=== PATIENT | female | born 1975 | race Hispanic/Latino ===

== ENCOUNTER 2024-01-19 22:34 | Inpatient (IN) | payer SELFPAY ==
[~2024-01-19] VITALS: Ht 157.5 cm; Wt 77.1 kg
[2024-01-19 22:58] LABS: BASOPHILS # (AUTO) 0.01 K/uL (0.00-0.20); BASOPHILS % (AUTO) 0.2 % (0.0-5.0); EOSINOPHILS # (AUTO) 0.18 K/uL (0.00-0.70); EOSINOPHILS % (AUTO) 3.4 % (0.0-8.0); HEMATOCRIT 34.9 % (36-48); IMMATURE GRANULOCYTE ABSOLUTE 0.01 K/uL (0-1); LYMPHOCYTES # (AUTO) 3.1 K/uL (1.0-4.8); LYMPHOCYTES % (AUTO) 57.9 % (21.0-51.0); MEAN CORPUSCULAR HEMOGLOBIN 28.9 pg (27.0-33.0); MEAN CORPUSCULAR HGB CONC 33.2 g/dL (32.0-36.0); MONOCYTES # (AUTO) 0.6 K/uL (0.1-1.0); MONOCYTES % (AUTO) 11.7 % (3.0-13.0); NEUTROPHILS # (AUTO) 1.4 K/uL (1.8-7.7); NEUTROPHILS % (AUTO) 26.6 % (40.0-77.0); PLATELET COUNT (AUTO) 178 K/uL (130-400); RED BLOOD CELL COUNT(AUTO) 4.01 MIL/uL (4.00-5.50); RED CELL DISTRIBUTION WIDTH 13.7 % (11.0-15.5); WHITE BLOOD COUNT (AUTO) 5.3 K/uL (4.8-10.8)
[2024-01-19 23:07] LABS: CREATININE 0.5 mg/dL (0.5-1.0); POTASSIUM 3.6 mmol/L (3.5-5.1)
[2024-01-19] MEDS: 0.9%NACL 1000ML 1,000 ML IV ONE (23:09)
[2024-01-19 23:13] LABS: ALBUMIN 3.1 g/dL (3.5-5.0); BILIRUBIN,TOTAL 0.3 mg/dL (0.2-1.0); TOTAL PROTEIN, SERUM 6.6 g/dL (6.0-8.3)
[2024-01-20] MEDS: ORPHENADRINE 60MG/2ML IM ONE (01:36)
[2024-01-20] MEDS: ketOROlac 30MG VIAL (30MG/ML) IM ONE (01:36)
[2024-01-20] MEDS: morPHINE 2 MG SYG IVP ONE (03:04)
[2024-01-20] MEDS: 0.9%NACL 1000ML 1,000 ML IV ONE (03:37)
[2024-01-20] MEDS ORDERED: acetaMINOPHEN 325 MG TAB PO PRN ×2 (06:30)
[2024-01-20] MEDS ORDERED: ondanSETRON 4MG INJ IV PRN (06:30)
[2024-01-20 07:35] VITALS: BP 150/75; PULSE 78; RESP 18; TEMP 98.1
[2024-01-20 07:49] LABS: BASOPHILS # (AUTO) 0.01 K/uL (0.00-0.20); BASOPHILS % (AUTO) 0.1 % (0.0-5.0); EOSINOPHILS # (AUTO) 0.16 K/uL (0.00-0.70); EOSINOPHILS % (AUTO) 2.2 % (0.0-8.0); HEMATOCRIT 33.2 % (36-48); IMMATURE GRANULOCYTE ABSOLUTE 0.01 K/uL (0-1); LYMPHOCYTES # (AUTO) 3.1 K/uL (1.0-4.8); LYMPHOCYTES % (AUTO) 42.6 % (21.0-51.0); MEAN CORPUSCULAR HGB CONC 32.2 g/dL (32.0-36.0); MONOCYTES # (AUTO) 0.7 K/uL (0.1-1.0); NEUTROPHILS # (AUTO) 3.2 K/uL (1.8-7.7); PLATELET COUNT (AUTO) 154 K/uL (130-400); RED BLOOD CELL COUNT(AUTO) 3.69 MIL/uL (4.00-5.50); WHITE BLOOD COUNT (AUTO) 7.2 K/uL (4.8-10.8)
[2024-01-20 08:19] LABS: ALBUMIN 2.9 g/dL (3.5-5.0); BILIRUBIN,TOTAL 0.6 mg/dL (0.2-1.0); CREATININE 0.5 mg/dL (0.5-1.0); MAGNESIUM 1.6 mg/dL (1.80-2.40)
[2024-01-20 09:00] LABS: ERYTHROCYTE SEDIMENTATION RATE 6 MM/HR (0-20)
[2024-01-20] MEDS: FAMOTIDINE 20MG TAB PO SCH (09:49)
[2024-01-20 10:04] LABS: APPEARANCE,URINE CLOUDY (CLEAR); BILIRUBIN,URINE NEGATIVE (NEGATIVE); COLOR,URINE YELLOW (YELLOW); GLUCOSE, URINE (UA) NEGATIVE (NEGATIVE); KETONES,URINE NEGATIVE (NEGATIVE); LEUKOCYTE ESTERASE ,URINE 75 Leu/uL (NEGATIVE); NITRATE,URINE NEGATIVE (NEGATIVE); OCCULT BLOOD,URINE SMALL (NEGATIVE); PH,URINE 5.5 (5.0-8.0); PROTEIN,URINE 30 mg/dL (NEGATIVE); UROBILINOGEN,URINE 0.2 mg/dL (0.2-1.0)
[2024-01-20 10:46] LABS: BACTERIA,URINE Many /HPF (None Seen)
[2024-01-20 12:00] VITALS: BP 149/80; PULSE 78; RESP 18; TEMP 98.3
[2024-01-20] MEDS: MAGNESIUM 2GM PREMIX 50ML 50 ML IV PRN (18:24)
[2024-01-20 20:00] VITALS: BP 159/92; PULSE 84; RESP 20; TEMP 98; O2SAT 99
[2024-01-21] VITALS (8 sets, daily range): BP systolic 143–160; BP diastolic 64–86; PULSE 79–92; RESP 16–20; TEMP 97.5–98.3; O2SAT 96–98
[2024-01-21] MEDS: ketOROlac 15MG/ML VIAL (15MG/ML) IV PRN (07:43)
[2024-01-21 09:23] LABS: BASOPHILS # (AUTO) 0.01 K/uL (0.00-0.20); BASOPHILS % (AUTO) 0.2 % (0.0-5.0); EOSINOPHILS # (AUTO) 0.08 K/uL (0.00-0.70); EOSINOPHILS % (AUTO) 1.6 % (0.0-8.0); HEMATOCRIT 32.4 % (36-48); IMMATURE GRANULOCYTE ABSOLUTE 0.02 K/uL (0-1); LYMPHOCYTES # (AUTO) 1.8 K/uL (1.0-4.8); LYMPHOCYTES % (AUTO) 37.4 % (21.0-51.0); MEAN CORPUSCULAR HEMOGLOBIN 28.8 pg (27.0-33.0); MEAN CORPUSCULAR VOLUME 87.1 fL (79-99); MONOCYTES # (AUTO) 0.4 K/uL (0.1-1.0); MONOCYTES % (AUTO) 8.7 % (3.0-13.0); NEUTROPHILS # (AUTO) 2.5 K/uL (1.8-7.7); NEUTROPHILS % (AUTO) 51.7 % (40.0-77.0); PLATELET COUNT (AUTO) 159 K/uL (130-400); RED BLOOD CELL COUNT(AUTO) 3.72 MIL/uL (4.00-5.50); RED CELL DISTRIBUTION WIDTH 13.6 % (11.0-15.5); WHITE BLOOD COUNT (AUTO) 4.9 K/uL (4.8-10.8)
[2024-01-21 09:38] LABS: ALBUMIN 2.8 g/dL (3.5-5.0); BILIRUBIN,TOTAL 0.7 mg/dL (0.2-1.0); CREATININE 0.5 mg/dL (0.5-1.0); POTASSIUM 4.3 mmol/L (3.5-5.1)
[2024-01-21] MEDS: ZOSYN 3.375GM +NS 50ML IV SCH (13:41)
[2024-01-21 14:04] LABS: THYROID STIMULATING HORMONE < 0.01 uIU/mL (0.36-3.74)
[2024-01-22] VITALS (8 sets, daily range): BP systolic 122–164; BP diastolic 55–93; PULSE 56–110; RESP 18–20; TEMP 98–99; O2SAT 96–100
[2024-01-22 04:50] LABS: BASOPHILS # (AUTO) 0.01 K/uL (0.00-0.20); BASOPHILS % (AUTO) 0.2 % (0.0-5.0); EOSINOPHILS # (AUTO) 0.19 K/uL (0.00-0.70); EOSINOPHILS % (AUTO) 3.6 % (0.0-8.0); HEMATOCRIT 32.7 % (36-48); IMMATURE GRANULOCYTE ABSOLUTE 0.01 K/uL (0-1); LYMPHOCYTES # (AUTO) 2.7 K/uL (1.0-4.8); LYMPHOCYTES % (AUTO) 51.8 % (21.0-51.0); MEAN CORPUSCULAR HEMOGLOBIN 28.8 pg (27.0-33.0); MEAN CORPUSCULAR HGB CONC 32.1 g/dL (32.0-36.0); MEAN CORPUSCULAR VOLUME 89.6 fL (79-99); MONOCYTES # (AUTO) 0.6 K/uL (0.1-1.0); MONOCYTES % (AUTO) 11.2 % (3.0-13.0); NEUTROPHILS # (AUTO) 1.7 K/uL (1.8-7.7); PLATELET COUNT (AUTO) 148 K/uL (130-400); RED BLOOD CELL COUNT(AUTO) 3.65 MIL/uL (4.00-5.50); RED CELL DISTRIBUTION WIDTH 13.6 % (11.0-15.5); WHITE BLOOD COUNT (AUTO) 5.3 K/uL (4.8-10.8)
[2024-01-22 05:03] LABS: ALBUMIN 2.7 g/dL (3.5-5.0); BILIRUBIN,TOTAL 0.9 mg/dL (0.2-1.0); CREATININE 0.5 mg/dL (0.5-1.0); POTASSIUM 4.1 mmol/L (3.5-5.1); TOTAL PROTEIN, SERUM 5.8 g/dL (6.0-8.3)
[2024-01-22] MEDS: LISINOPRIL 20 MG TABLET PO SCH (09:41)
[2024-01-22] MEDS: methIMAZOLE 10 MG TAB PO SCH ×2 (14:25→21:30)
[2024-01-23] VITALS (7 sets, daily range): BP systolic 116–149; BP diastolic 50–82; PULSE 60–101; RESP 19–20; TEMP 97.6–99.2; O2SAT 97–100
[2024-01-23 05:54] LABS: CREATININE 0.4 mg/dL (0.5-1.0); POTASSIUM 3.6 mmol/L (3.5-5.1)
[2024-01-23 05:58] LABS: ALBUMIN 2.8 g/dL (3.5-5.0); BILIRUBIN,TOTAL 0.8 mg/dL (0.2-1.0); TOTAL PROTEIN, SERUM 5.9 g/dL (6.0-8.3)
[2024-01-23 06:04] LABS: BASOPHILS # (AUTO) 0.01 K/uL (0.00-0.20); BASOPHILS % (AUTO) 0.2 % (0.0-5.0); EOSINOPHILS # (AUTO) 0.17 K/uL (0.00-0.70); EOSINOPHILS % (AUTO) 2.7 % (0.0-8.0); IMMATURE GRANULOCYTE ABSOLUTE 0.02 K/uL (0-1); LYMPHOCYTES % (AUTO) 32.4 % (21.0-51.0); MEAN CORPUSCULAR HEMOGLOBIN 28.9 pg (27.0-33.0); MEAN CORPUSCULAR HGB CONC 32.9 g/dL (32.0-36.0); MEAN CORPUSCULAR VOLUME 87.8 fL (79-99); MONOCYTES # (AUTO) 0.8 K/uL (0.1-1.0); MONOCYTES % (AUTO) 12.6 % (3.0-13.0); NEUTROPHILS # (AUTO) 3.3 K/uL (1.8-7.7); NEUTROPHILS % (AUTO) 51.8 % (40.0-77.0); PLATELET COUNT (AUTO) 147 K/uL (130-400); RED BLOOD CELL COUNT(AUTO) 3.53 MIL/uL (4.00-5.50); RED CELL DISTRIBUTION WIDTH 13.5 % (11.0-15.5); WHITE BLOOD COUNT (AUTO) 6.3 K/uL (4.8-10.8)
[2024-01-23] MEDS: LISINOPRIL 40 MG TABLET PO SCH (08:54)
[2024-01-23] MEDS: dexaMETHasone 4 MG TAB PO SCH (08:55)
[2024-01-24 04:00] VITALS: BP 163/83; PULSE 74; RESP 19; TEMP 97.6
[2024-01-24 05:14] LABS: BASOPHILS # (AUTO) 0.01 K/uL (0.00-0.20); BASOPHILS % (AUTO) 0.2 % (0.0-5.0); HEMATOCRIT 29.8 % (36-48); IMMATURE GRANULOCYTE ABSOLUTE 0.03 K/uL (0-1); LYMPHOCYTES # (AUTO) 1.1 K/uL (1.0-4.8); LYMPHOCYTES % (AUTO) 17.6 % (21.0-51.0); MEAN CORPUSCULAR HEMOGLOBIN 28.8 pg (27.0-33.0); MEAN CORPUSCULAR HGB CONC 33.2 g/dL (32.0-36.0); MEAN CORPUSCULAR VOLUME 86.6 fL (79-99); MONOCYTES # (AUTO) 0.6 K/uL (0.1-1.0); MONOCYTES % (AUTO) 9.2 % (3.0-13.0); NEUTROPHILS # (AUTO) 4.5 K/uL (1.8-7.7); NEUTROPHILS % (AUTO) 72.5 % (40.0-77.0); PLATELET COUNT (AUTO) 163 K/uL (130-400); RED BLOOD CELL COUNT(AUTO) 3.44 MIL/uL (4.00-5.50); RED CELL DISTRIBUTION WIDTH 13.4 % (11.0-15.5); WHITE BLOOD COUNT (AUTO) 6.2 K/uL (4.8-10.8)
[2024-01-24 05:39] LABS: ALBUMIN 2.8 g/dL (3.5-5.0); BILIRUBIN,TOTAL 0.5 mg/dL (0.2-1.0); CREATININE 0.4 mg/dL (0.5-1.0); POTASSIUM 3.8 mmol/L (3.5-5.1); TOTAL PROTEIN, SERUM 6.1 g/dL (6.0-8.3)
[2024-01-24 08:00] VITALS: BP 137/77; PULSE 80; RESP 18; TEMP 97.6
[2024-01-24 08:05] VITALS: O2SAT 97
[2024-01-24] MEDS: DiphenhydrAMINE HCL 50 MG/ML VIAL IV ONE (10:21)
[2024-01-24] MEDS: 0.9%NACL 1000ML 1,000 ML IV ONE (10:21)
[2024-01-24 12:00] VITALS: BP 171/85; PULSE 75; RESP 18; TEMP 98.2
[2024-01-24 16:00] VITALS: BP 156/90; PULSE 83; RESP 18; TEMP 97.7
[2024-01-24 20:00] VITALS: BP 171/82; PULSE 76; RESP 19; TEMP 98.1; O2SAT 97
[2024-01-24] MEDS: NITROFURANTOIN MONOHYD/M-CRYST 100 MG CAPSULE PO SCH (20:41)
[2024-01-24] MEDS: DiphenhydrAMINE HCL 50 MG/ML VIAL IV PRN (20:42)
[2024-01-25] VITALS (7 sets, daily range): BP systolic 131–171; BP diastolic 66–92; PULSE 58–75; RESP 18; TEMP 97.6–98.7; O2SAT 94–96
[2024-01-25 06:09] LABS: BASOPHILS # (AUTO) 0.02 K/uL (0.00-0.20); BASOPHILS % (AUTO) 0.2 % (0.0-5.0); EOSINOPHILS # (AUTO) 0.33 K/uL (0.00-0.70); EOSINOPHILS % (AUTO) 2.9 % (0.0-8.0); IMMATURE GRANULOCYTE ABSOLUTE 0.05 K/uL (0-1); LYMPHOCYTES # (AUTO) 2.2 K/uL (1.0-4.8); LYMPHOCYTES % (AUTO) 19.3 % (21.0-51.0); MEAN CORPUSCULAR HEMOGLOBIN 28.4 pg (27.0-33.0); MEAN CORPUSCULAR HGB CONC 31.9 g/dL (32.0-36.0); MEAN CORPUSCULAR VOLUME 89.1 fL (79-99); MONOCYTES # (AUTO) 0.8 K/uL (0.1-1.0); MONOCYTES % (AUTO) 7.1 % (3.0-13.0); NEUTROPHILS # (AUTO) 7.9 K/uL (1.8-7.7); NEUTROPHILS % (AUTO) 70.1 % (40.0-77.0); PLATELET COUNT (AUTO) 178 K/uL (130-400); RED BLOOD CELL COUNT(AUTO) 3.59 MIL/uL (4.00-5.50); RED CELL DISTRIBUTION WIDTH 13.6 % (11.0-15.5); WHITE BLOOD COUNT (AUTO) 11.2 K/uL (4.8-10.8)
[2024-01-25 06:41] LABS: ALBUMIN 2.9 g/dL (3.5-5.0); BILIRUBIN,TOTAL 0.5 mg/dL (0.2-1.0); CREATININE 0.5 mg/dL (0.5-1.0); POTASSIUM 3.4 mmol/L (3.5-5.1); TOTAL PROTEIN, SERUM 6.2 g/dL (6.0-8.3)
[2024-01-25] MEDS: PROPRANOLOL HCL 10 MG TAB PO SCH ×2 (14:29→21:00)
[2024-01-25] MEDS: DiphenhydrAMINE 2% CREAM 30 GM TP PRN (22:36)
[2024-01-26] VITALS (9 sets, daily range): BP systolic 120–144; BP diastolic 64–88; PULSE 54–74; RESP 18–19; TEMP 97.5–98.5; O2SAT 98–100
[2024-01-26 04:59] LABS: BASOPHILS # (AUTO) 0.03 K/uL (0.00-0.20); BASOPHILS % (AUTO) 0.3 % (0.0-5.0); EOSINOPHILS # (AUTO) 0.58 K/uL (0.00-0.70); EOSINOPHILS % (AUTO) 5.1 % (0.0-8.0); HEMATOCRIT 30.8 % (36-48); IMMATURE GRANULOCYTE ABSOLUTE 0.05 K/uL (0-1); LYMPHOCYTES # (AUTO) 2.7 K/uL (1.0-4.8); LYMPHOCYTES % (AUTO) 23.6 % (21.0-51.0); MEAN CORPUSCULAR HEMOGLOBIN 29.1 pg (27.0-33.0); MEAN CORPUSCULAR HGB CONC 32.8 g/dL (32.0-36.0); MEAN CORPUSCULAR VOLUME 88.8 fL (79-99); MONOCYTES % (AUTO) 8.6 % (3.0-13.0); PLATELET COUNT (AUTO) 162 K/uL (130-400); RED BLOOD CELL COUNT(AUTO) 3.47 MIL/uL (4.00-5.50); RED CELL DISTRIBUTION WIDTH 13.6 % (11.0-15.5); WHITE BLOOD COUNT (AUTO) 11.3 K/uL (4.8-10.8)
[2024-01-26 05:19] LABS: ALBUMIN 2.8 g/dL (3.5-5.0); BILIRUBIN,TOTAL 0.6 mg/dL (0.2-1.0); CREATININE 0.4 mg/dL (0.5-1.0); POTASSIUM 3.4 mmol/L (3.5-5.1); TOTAL PROTEIN, SERUM 5.8 g/dL (6.0-8.3)
[2024-01-26] MEDS ORDERED: PoTASSium chloRIDE 20MEQ/100ML 100 ML IV PRN (05:30)
[2024-01-26] MEDS ORDERED: PoTASSium chl 10% ELIXIR 20MEQ 20 MEQ/15 ML UDCUP PO PRN (05:30)
[2024-01-26] MEDS: PoTASSium chloRIDE 20MEQ ER 20 MEQ ERTAB PO PRN (05:39)
[2024-01-26] MEDS: FAMOTIDINE 20MG TAB PO SCH (20:44)
[2024-01-26] MEDS: BETAMETHASONE VALERATE 45 GM CREAM.GM. TP SCH (20:45)
[2024-01-27 04:00] VITALS: BP 144/81; PULSE 59; RESP 19; TEMP 97.9
[2024-01-27 04:44] LABS: BASOPHILS # (AUTO) 0.02 K/uL (0.00-0.20); BASOPHILS % (AUTO) 0.2 % (0.0-5.0); EOSINOPHILS # (AUTO) 0.91 K/uL (0.00-0.70); EOSINOPHILS % (AUTO) 8.2 % (0.0-8.0); HEMATOCRIT 28.7 % (36-48); IMMATURE GRANULOCYTE ABSOLUTE 0.02 K/uL (0-1); LYMPHOCYTES # (AUTO) 4.2 K/uL (1.0-4.8); LYMPHOCYTES % (AUTO) 37.8 % (21.0-51.0); MEAN CORPUSCULAR HGB CONC 33.4 g/dL (32.0-36.0); MEAN CORPUSCULAR VOLUME 86.7 fL (79-99); MONOCYTES # (AUTO) 1.1 K/uL (0.1-1.0); MONOCYTES % (AUTO) 10.2 % (3.0-13.0); NEUTROPHILS # (AUTO) 4.8 K/uL (1.8-7.7); NEUTROPHILS % (AUTO) 43.4 % (40.0-77.0); PLATELET COUNT (AUTO) 159 K/uL (130-400); RED BLOOD CELL COUNT(AUTO) 3.31 MIL/uL (4.00-5.50); RED CELL DISTRIBUTION WIDTH 13.5 % (11.0-15.5); WHITE BLOOD COUNT (AUTO) 11.1 K/uL (4.8-10.8)
[2024-01-27 05:38] LABS: ALBUMIN 2.6 g/dL (3.5-5.0); BILIRUBIN,TOTAL 0.7 mg/dL (0.2-1.0); CREATININE 0.4 mg/dL (0.5-1.0); POTASSIUM 3.4 mmol/L (3.5-5.1); TOTAL PROTEIN, SERUM 5.6 g/dL (6.0-8.3)
[2024-01-27 08:00] VITALS: BP 142/77; PULSE 64; RESP 17; TEMP 97.8; O2SAT 100
[2024-01-27 12:00] VITALS: BP 137/67; PULSE 66; RESP 18; TEMP 98.6
[2024-01-27 16:00] VITALS: BP 131/70; PULSE 71; RESP 19; TEMP 99.6
[2024-01-27] MEDS: Solu-medROL 125MG VIAL IVP ONE (17:08)
[2024-01-27 20:00] VITALS: BP 146/75; PULSE 68; RESP 16; TEMP 99.4; O2SAT 98
[2024-01-28] VITALS: BP 143/81; PULSE 62; RESP 16; TEMP 97.7
[2024-01-28 04:00] VITALS: BP 126/70; PULSE 63; RESP 16; TEMP 97.6
[2024-01-28] MEDS: Solu-medROL 125MG VIAL ONE (07:54)
[2024-01-28 08:00] VITALS: BP 150/75; PULSE 60; RESP 18; TEMP 98
[2024-01-28] MEDS: predniSONE 20 MG TABLET PO SCH (09:02)
[2024-01-28 11:54] VITALS: BP 124/60; PULSE 69; RESP 18; TEMP 97.8
[2024-01-28] MEDS ORDERED: LISI40TA9 PO (13:13)
[2024-01-28] MEDS ORDERED: BETA15CR6 TP (13:13)
[2024-01-28] MEDS ORDERED: PROP10TA72 PO (13:13)
[2024-01-28] MEDS ORDERED: PRED10TA3 PO (13:18)
[2024-01-28] MEDS ORDERED: CEPH500T PO (13:19)
[2024-01-30] MEDS ORDERED: predniSONE 10 MG TABLET PO SCH (09:00)
[2024-02-02] MEDS ORDERED: predniSONE 5 MG TABLET PO SCH (09:00)
== END 2024-01-28 15:30 | disposition home or self-care (01) | DRG 552 ==
LOC: EDH 22:34 → EDHIP 22:35 → OBSVTOIN 22:35 → 3DH 01-20 07:35
PROVIDERS: ADMIT Internal Medicine; ATTEND Internal Medicine
DX: M43.17 Spondylolisthesis, lumbosacral region (principal); N39.0 Urinary tract infection, site not specified; D64.9 Anemia, unspecified; E04.1 Nontoxic single thyroid nodule; Z88.8 Allergy status to other drugs, medicaments and biological substances; B96.20 Unspecified Escherichia coli [E. coli] as the cause of diseases classified elsewhere; F17.210 Nicotine dependence, cigarettes, uncomplicated; L29.9 Pruritus, unspecified; M48.07 Spinal stenosis, lumbosacral region; G89.29 Other chronic pain; E03.9 Hypothyroidism, unspecified; I10 Essential (primary) hypertension
CPT/HCPCS: 36415; 72100; 72114; 72148; 76536; 80053; 81001; 82306; 82550; 82607; 83735; 84439; 84443; 84480; 85025; 85651; 86038; 86215; 86235; 87086; 87186; 96361; G0378; J1200; J1885; J2270; J2543; J2919; J3475; J8540; J2360

== ENCOUNTER 2024-04-09 10:55 | Inpatient (IN) | payer BC, MEDICAID ==
[~2024-04-09] VITALS: Ht 157.5 cm; Wt 75.5 kg
[~2024-04-09 10:55] MED LIST: APIX5TAB PO; LEVO250T75 PO; LISI40TA9 PO; METH-387 PO; [UNRECOGNIZED DRUG - CODE] PO
[2024-04-09] MEDS: 0.9%NACL 1000ML 1,000 ML IV ONE (11:14)
[2024-04-09] MEDS: acetaMINOPHEN 500 MG TABLET PO ONE (11:15)
[2024-04-09 11:22] LABS: BASOPHILS # (AUTO) 0.02 K/uL (0.00-0.20); BASOPHILS % (AUTO) 0.2 % (0.0-5.0); EOSINOPHILS # (AUTO) 0.04 K/uL (0.00-0.70); EOSINOPHILS % (AUTO) 0.3 % (0.0-8.0); HEMATOCRIT 38.6 % (36-48); IMMATURE GRANULOCYTE ABSOLUTE 0.04 K/uL (0-1); LYMPHOCYTES # (AUTO) 3.8 K/uL (1.0-4.8); LYMPHOCYTES % (AUTO) 30.2 % (21.0-51.0); MEAN CORPUSCULAR HEMOGLOBIN 28.5 pg (27.0-33.0); MEAN CORPUSCULAR HGB CONC 33.4 g/dL (32.0-36.0); MEAN CORPUSCULAR VOLUME 85.4 fL (79-99); MONOCYTES # (AUTO) 1.7 K/uL (0.1-1.0); MONOCYTES % (AUTO) 13.4 % (3.0-13.0); NEUTROPHILS % (AUTO) 55.6 % (40.0-77.0); PLATELET COUNT (AUTO) 211 K/uL (130-400); RED BLOOD CELL COUNT(AUTO) 4.52 MIL/uL (4.00-5.50); RED CELL DISTRIBUTION WIDTH 13.8 % (11.0-15.5); WHITE BLOOD COUNT (AUTO) 12.6 K/uL (4.8-10.8)
[2024-04-09 11:24] LABS: APPEARANCE,URINE CLOUDY (CLEAR); BILIRUBIN,URINE NEGATIVE (NEGATIVE); COLOR,URINE YELLOW (YELLOW); GLUCOSE, URINE (UA) NEGATIVE (NEGATIVE); KETONES,URINE NEGATIVE (NEGATIVE); LEUKOCYTE ESTERASE ,URINE 75 Leu/uL (NEGATIVE); NITRATE,URINE NEGATIVE (NEGATIVE); OCCULT BLOOD,URINE NEGATIVE (NEGATIVE); PH,URINE 6.5 (5.0-8.0); PROTEIN,URINE NEGATIVE (NEGATIVE); UROBILINOGEN,URINE 0.2 mg/dL (0.2-1.0)
[2024-04-09 11:28] LABS: CREATININE 0.5 mg/dL (0.5-1.0); POTASSIUM 3.7 mmol/L (3.5-5.1)
[2024-04-09 11:29] LABS: ADD UA MICROSCOPIC YES
[2024-04-09 11:34] LABS: BACTERIA,URINE MOD /HPF (None Seen); MUCUS,URINE RARE LPF (None Seen); SQUAMOUS EPITHELIAL CELL,UR RARE /HPF (0-2)
[2024-04-09] MEDS: ondanSETRON 4MG INJ IVP ONE (11:42)
[2024-04-09] MEDS: ketOROlac 15MG/ML VIAL (15MG/ML) IV ONE (11:43)
[2024-04-09] MEDS: morPHINE 2 MG SYG IVP ONE (11:43)
[2024-04-09] MEDS: AZTREONAM 1 GM VIAL IVPB SCH (12:23)
--- NOTE | 2024-04-09 13:15 | HMCIMG ---
CT ABDOMEN/PELVIS W/O CONTRAST REASON: flank pain hx of kidney stones COMPARISON: None. FINDINGS: Lung bases are clear. There are no focal liver lesions. There are normal-appearing kidneys.. There is no evidence of mass, stone or hydronephrosis. Spleen and pancreas appear unremarkable. There has been a previous cholecystectomy. Bowel loops appear unremarkable. There is no CT evidence of acute appendicitis. There is no evidence of free fluid or intraperitoneal air. There are no focal fluid collections. Aorta and retroperitoneum appear normal as do pelvic soft tissue structures. The anterior abdominal wall is intact. Osseous structures appear unremarkable. IMPRESSION: 1. Normal noncontrast CT of the abdomen and pelvis. CT was performed with one or more following dose reduction techniques: automated exposure control, adjustment of the mA and kv according to patient's size, or use of a iterative reconstruction technique.
[2024-04-09] MEDS ORDERED: ketOROlac 30MG VIAL (30MG/ML) IVP PRN (14:00)
[2024-04-09] MEDS ORDERED: ondanSETRON 4MG INJ IVP PRN (14:00)
--- NOTE | 2024-04-09 14:11 | HP ---
[facility] HISTORY AND PHYSICAL Date of Service: Apr 09, 2024 Time of Service: 13:46 HISTORY OF PRESENT ILLNESS: [ ] admission date: 04/09/24 PCP: Self referral This is a 49-year-old female who was recently hospitalized for similar symptoms dysuria right flank pain fevers and chills. Patient reports having fevers it started overnight with unbearable right flank pain. Alleviating factors none. Patient reports taking Tylenol for pain. On arrival patient's pain was 10/10 patient received morphine for pain. Pain is localized to right flank. Does not radiate. Patient denies nausea, vomiting, hematuria. ER workup CT abdomen and pelvis showed no kidney stones however slightly hydronephrosis. Patient reports she was on oral antibiotics upon discharge for five days. On this admission out we will bring Infectious Disease for antibiotics stewardship. Patient is allergic to penicillin. patient received one dose of Azactam 1 gm. in Ed REVIEW OF SYSTEMS A 14 point ROS was obtained all relevant positives were documented otherwise ROS negative PAST MEDICAL HISTORY: [ ]hypertension,hyperthyroidism ,left kidney stone,urinary tract infection with E-Coli and severe central canal stenosis at L5-S1 secondary to anterolisthesis ] PAST SURGICAL HISTORY: [ ]Tonsillectomy, cholecystectomy, x2, right hip surgery ] PAST SOCIAL HISTORY: [ ]Patient lives with children. Patient denies alcohol tobacco and recreational drug use ] FAMILY HISTORY: [ ] Hypertension, diabetes, stroke, Chronic obstructive pulmonary disease and card iovascular disease ] Coded Allergies: piperacillin (Unverified Allergy, Intermediate, RASH, 03/11/24) tazobactam (Unverified Allergy, Intermediate, RASH, 03/11/24) PHYSICAL EXAM GENERAL APPEARANCE: The patient is awake, alert, and oriented, in no acute cardiopulmonary distress. NEUROLOGICAL: Cranial nerves II-XII grossly intact. Motor is 5/5 in bilateral upper and lower extremities proximal to distal. No sensory deficits. HEENT: Face is symmetric. Pupils are equal and reactive. Extraocular movements are intact. NECK: Supple. No JVD. No thyromegaly. No submental, submandibular, pre- /postauricular, occipital or supraclavicular lymphadenopathy. CHEST: Normal chest expansion. No Telemetry. LUNGS: Absence of any rales, rhonchi or any wheezing. CARDIOVASCULAR: Regular. S1 and S2 normal. No appreciable rubs, murmurs or gallops. ABDOMEN: Soft, nontender, and nondistended. There is no rebound, voluntary guarding, or rigidity. : Right flank pain EXTREMITIES: Non-edematous and not cyanotic. No clubbing. Good capillary refill. SKIN: No skin breakdown. Vital Sign (Last 24 Hours) 04/09/24 11:21 Temp 100.9 Pulse 102 Resp 18 B/P (MAP) 116/97 Pulse Ox 98 O2 Delivery Room Air* O2 Flow Rate 0 FiO2 21 LABS: Laboratory: Test 04/09/24 11:11 Range/Units White Blood Count 12.6 H 4.8-10.8 K/uL Red Blood Count 4.52 4.00-5.50 MIL/uL Hemoglobin 12.9 12.0-16.0 g/dL Hematocrit 38.6 36-48 % Mean Corpuscular Volume 85.4 79-99 fL Mean Corpuscular Hemoglobin 28.5 27.0-33.0 pg Mean Corpuscular Hemoglobin Concent 33.4 32.0-36.0 g/dL Red Cell Distribution Width 13.8 11.0-15.5 % Platelet Count 211 130-400 K/uL Mean Platelet Volume 10.3 7.5-10.5 fL Immature Granulocyte % (Auto) 0.3 0-1 % Neutrophils (%) (Auto) 55.6 40.0-77.0 % Lymphocytes (%) (Auto) 30.2 21.0-51.0 % Monocytes (%) (Auto) 13.4 H 3.0-13.0 % Eosinophils (%) (Auto) 0.3 0.0-8.0 % Basophils (%) (Auto) 0.2 0.0-5.0 % Neutrophils # (Auto) 7.0 1.8-7.7 K/uL Lymphocytes # (Auto) 3.8 1.0-4.8 K/uL Monocytes # (Auto) 1.7 H 0.1-1.0 K/uL Eosinophils # (Auto) 0.04 0.00-0.70 K/uL Basophils # (Auto) 0.02 0.00-0.20 K/uL Absolute Immature Granulocyte (auto 0.04 0-1 K/uL Nucleated Red Blood Cells 0.0 0.0-0.19 % Urine Color YELLOW YELLOW Urine Appearance CLOUDY H CLEAR Urine pH 6.5 5.0-8.0 Urine Specific [place] 1.014 1.001-1.031 Urine Protein NEGATIVE NEGATIVE mg/dL Urine Glucose (UA) NEGATIVE NEGATIVE mg/dL Urine Ketones NEGATIVE NEGATIVE mg/dL Urine Occult Blood NEGATIVE NEGATIVE Urine Nitrate NEGATIVE NEGATIVE Urine Bilirubin NEGATIVE NEGATIVE mg/dL Urine Urobilinogen 0.2 0.2-1.0 mg/dL Urine Leukocyte Esterase 75 H NEGATIVE Fer/uL Urine RBC 6-10 H 0-1 /HPF Urine WBC 11-25 H 0-1 /HPF Urine Squamous Epithelial Cells RARE 0-2 /HPF Urine Bacteria MOD None Seen /HPF Sodium Level 139 136-145 mmol/L Potassium Level 3.7 3.5-5.1 mmol/L Chloride Level 104 101-111 mmol/L Carbon Dioxide Level 24 21-32 mmol/L Blood Urea Nitrogen 11 7-18 mg/dL Creatinine 0.5 0.5-1.0 mg/dL Glomerular Filtration Rate Calc 116 >90 mL/min Random Glucose 98 70-105 mg/dL Lactic Acid Level 2.0 0.8-2.5 mmol/L Total Calcium 9.5 8.5-10.1 mg/dL Procalcitonin < 0.05 L 0.05-0.5 ng/mL Serum Test, Qualitative NEGATIVE NEGATIVE Current Medications Medications (Trade) Dose Ordered Sig/Leah Route PRN Reason Start Time Stop Time Status Last Admin Dose Admin Aztreonam (Azactam) 1 gm Q8H IVPB 04/09/24 12:00 04/19/24 11:59 04/09/24 12:23 1 GM DIAGNOSTICS / RADIOLOGY: [ ] ASSESSMENT: Sirs with organ dysfunction POA acute UTI: Normocytic normochromic anemia POA History of kidney stone POA Hypertension POA hyperthyroidism POA on Methimazole PLAN: [ ] Sirs with organ dysfunction POA acute UTI: - Aztreonam 1gm Q 8 hrs - ID consulted - urine/ blood culture in process - cont with pain management for adequate pain controlled restarted home medications: Eliquis, propranolol, lisinopril and Methimazole replaced electrolytes as needed to keep K+ > 4.0 Mag+ 2.0 PRN: MEDICATIONS Tylenol 650 mg po every 4 hrs for fever Zofran 4 mg IV every 6 hrs for n/v Hydralazine 5 mg IV every 4 hrs systolic pressure > 160 Supportive measures: DVT ppx, GI ppx all questions answered time spent: > 35 min Supervising MD: Dr.s Olson c/d [facility] 1. Which of the following were discussed? Hospice Care - Yes / No Therapeutic options - Yes / No Advance Directives - Yes / No Other discussions - 2. Discussed with who? 3. Voluntary nature of this service was explained to the patient? Yes / No 4. Amount of time spent - 5. Reviewed by Physician? (if this service was performed by NPP) Yes / No ATTESTATION BY PHYSICIAN I have seen and examined the patient. I reviewed the documentation, medical decision making, and treatment plan as noted by the resident provider above. I agree with the findings and plan of care. Angel Olson MD, ELIZABETH NP Apr 09, 2024 14:11
--- NOTE | 2024-04-09 14:14 | ERN ---
General Chief Complaint: Flank Pain Stated Complaint: RIGHT FLANK PAIN HX OF KIDNEY STONES Time Seen by MD: 10:55 Time Seen by Midlevel: 10:55 Source: patient History of Present Illness Initial Comments Patient is a 49-year-old female with a past medical history of kidney stones presenting to the emergency department with sudden onset of right flank pain. Patient states she was at our hospital a month ago after being admitted for four days for an infected kidney stone. Today she reports fever, chills, and dysuria. Allergies: Coded Allergies: piperacillin (Unverified Allergy, Intermediate, RASH, 03/11/24) tazobactam (Unverified Allergy, Intermediate, RASH, 03/11/24) Home Meds Active Scripts Apixaban (Eliquis) 5 Mg Tablet, 1 TAB PO BID for 30 Days, #60 TAB 0 Refills Prov:CHIO HUA MD 03/14/24 Methimazole (Methimazole) 10 Mg Tablet, 1 TAB PO TID for 30 Days, #90 TAB 0 Refills Prov:CHIO HUA MD 03/14/24 Lisinopril (Lisinopril) 40 Mg Tablet, 40 MG PO DAILY, #30 TAB Prov:LUTHER KOHLER 01/28/24 Reported Medications Propranolol HCl (Propranolol HCl) 10 Mg Tablet, 1 TAB PO DAILY for 30 Days, #60 TAB 0 Refills 04/09/24 Discontinued Scripts Levofloxacin (Levofloxacin) 250 Mg Tablet, 1 TAB PO DAILY for 5 Days, #5 TAB 0 Refills Prov:CHIO HUA MD 03/14/24 Propranolol HCl (Inderal LA) 160 Mg Cap.sa.24h, 1 CAP PO DAILY for 30 Days, #30 CAP 0 Refills Prov:CHIO HUA MD 03/14/24 Past Medical History Past Medical History: Hypertension, Hypothyroid, Kidney Stone Past Surgical History: Tonsillectomy, Cholecystectomy, Other, Surgical History Other: HIP Female( History) History: Not Applicable ROS Dictation CONSTITUTIONAL: Negative except for HPI HEAD/FACE: Negative except for HPI EENT: Negative except for HPI RESPIRATORY: Negative except for HPI GASTROINTESTINAL/ABDOMINAL: Negative except for HPI GENITOURINARY: Negative except for HPI MUSCULOSKELETAL: Negative except for HPI INTEGUMENTARY: Negative except for HPI NEUROLOGICAL/PSYCH: Negative except for HPI HEMATOLOGIC/LYMPHATIC: Negative except for HPI All Systems Negative, Except as noted above. 13 point review of systems assessed and all negative except for above. Physical Exam Physical Exam Dictation Vital Signs reviewed General Appearance: Alert, oriented x 3, no acute distress, well developed, nour ished. Head and Face: non-traumatic. Eyes: PERRL, pink conjunctivas, eyelid no trauma, anterior chamber with arcus senilis. Ears: Pinnas intact and no signs of trauma or erythema ear canals clear and no discharge TM no erythema Nose: No discharge, no bleeding. Oropharynx: Mouth normal, tongue pink, pharynx clear,no erythema, tonsils no exudates, no abscesses noted, mucous mem brane moist Neck: Supple, non-tender, no thyromegaly, no masses, no JVD, no bruits Breast:Deferred Chest:No tenderness, no crepitus, no paradoxical movement, no retractions Lungs:Clear, well-ventilated, symmetric, no rales, no wheezing, no rhonchi, no stridor, good breath sounds bilaterally Heart: Tachycardic, regular rhythm, no murmur, no gallops Vascular: no peripheral edema, Abdomen: Soft, positive bowel sounds, nondistended, no guarding, Right CVA tenderness, no rebound, no masses no hepatomegaly, no splenomegaly, no Murdock's sign, no hernias. Rectal: Deferred Genital: Deferred Neurological: Normal speech, motor function intact, sensory function intact Musculoskeletal: Neck nontender, full range of motion, back nontender, full range of motion, Extremities: nontender, full range of motion Skin: Color pink, dry, no turgor, no rash, no lacerations, no abrasions, no contusions. Lymphatic: Deferred Results Laboratory and Microbiology Lab and Micro Result Laboratory Tests Test 04/09/24 11:11 White Blood Count 12.6 K/uL (4.8-10.8) H Red Blood Count 4.52 MIL/uL (4.00-5.50) Hemoglobin 12.9 g/dL (12.0-16.0) Hematocrit 38.6 % (36-48) Mean Corpuscular Volume 85.4 fL (79-99) Mean Corpuscular Hemoglobin 28.5 pg (27.0-33.0) Mean Corpuscular Hemoglobin Concent 33.4 g/dL (32.0-36.0) Red Cell Distribution Width 13.8 % (11.0-15.5) Platelet Count 211 K/uL (130-400) Mean Platelet Volume 10.3 fL (7.5-10.5) Immature Granulocyte % (Auto) 0.3 % (0-1) Neutrophils (%) (Auto) 55.6 % (40.0-77.0) Lymphocytes (%) (Auto) 30.2 % (21.0-51.0) Monocytes (%) (Auto) 13.4 % (3.0-13.0) H Eosinophils (%) (Auto) 0.3 % (0.0-8.0) Basophils (%) (Auto) 0.2 % (0.0-5.0) Neutrophils # (Auto) 7.0 K/uL (1.8-7.7) Lymphocytes # (Auto) 3.8 K/uL (1.0-4.8) Monocytes # (Auto) 1.7 K/uL (0.1-1.0) H Eosinophils # (Auto) 0.04 K/uL (0.00-0.70) Basophils # (Auto) 0.02 K/uL (0.00-0.20) Absolute Immature Granulocyte (auto 0.04 K/uL (0-1) Nucleated Red Blood Cells 0.0 % (0.0-0.19) Urine Color YELLOW (YELLOW) Urine Appearance CLOUDY (CLEAR) H Urine pH 6.5 (5.0-8.0) Urine Specific [place] 1.014 (1.001-1.031) Urine Protein NEGATIVE mg/dL (NEGATIVE) Urine Glucose (UA) NEGATIVE mg/dL (NEGATIVE) Urine Ketones NEGATIVE mg/dL (NEGATIVE) Urine Occult Blood NEGATIVE (NEGATIVE) Urine Nitrate NEGATIVE (NEGATIVE) Urine Bilirubin NEGATIVE mg/dL (NEGATIVE) Urine Urobilinogen 0.2 mg/dL (0.2-1.0) Urine Leukocyte Esterase 75 Fer/uL (NEGATIVE) H Urine RBC 6-10 /HPF (0-1) H Urine WBC 11-25 /HPF (0-1) H Urine Squamous Epithelial Cells RARE /HPF (0-2) Urine Bacteria MOD /HPF (None Seen) Sodium Level 139 mmol/L (136-145) Potassium Level 3.7 mmol/L (3.5-5.1) Chloride Level 104 mmol/L (101-111) Carbon Dioxide Level 24 mmol/L (21-32) Blood Urea Nitrogen 11 mg/dL (7-18) Creatinine 0.5 mg/dL (0.5-1.0) Glomerular Filtration Rate Calc 116 mL/min (>90) Random Glucose 98 mg/dL (70-105) Lactic Acid Level 2.0 mmol/L (0.8-2.5) Total Calcium 9.5 mg/dL (8.5-10.1) Procalcitonin < 0.05 ng/mL (0.05-0.5) L Serum Test, Qualitative NEGATIVE (NEGATIVE) Labs Reviewed?: Yes MDM MDM: Patient is a 49-year-old female with a past medical history of kidney stones presenting to the emergency department with sudden onset of right flank pain. Patient states she was at our hospital a month ago after being admitted for four days for an infected kidney stone. Today she reports fever, chills, and dysuria. On arrival patient is febrile and tachycardic. On physical examination she has right CVA tenderness. Her CBC shows leukocytosis with a left shift. Chemistries are stable. Kidney function is normal. Urinalysis is consistent with infection. Patient was started on aztreonam as she was an allergy to Zosyn and Rocephin. CT scan does not show any evidence of a ureter stone/pyelonephritis however given her previous history of infected kidney stone that led to sepsis patient will be admitted for further observation and management. Differential diagnosis: Urinary tract infection, sepsis, pyelonephritis, ureter stone Rationale: Tests considered and ordered secondary to shared decision making include: Previous outside records reviewed: Old ER visits. Risk of complication and/or morbidity or mortality of patient management: None Medications-Per medication reconciliation Need for hospitalization: Patient does meet criteria for hospitalization. Need for emergency major/minor surgery: No There are no social concerns with this patient. Prescription drug management Prescriptions will include symptomatic care Patient's prior external medical records from other ER visits were reviewed by me as indicated. Prior testing and results from previous visits were reviewed. Prior tests were taken into account with medical decision making and resource utilization, independent historian/historians were used to obtain complete medical history. I independently interpreted the test that were performed, results were reviewed by me and considered findings on radiology if ordered. Medical management and examination interpretation discussions were had by me with other qualified healthcare professionals as indicated for the patient's care. I attest that I performed a sepsis focused exam including review of vitals, cardiopulmonary exam, capillary refill evaluation, peripheral pulse evaluation and Skin exam. ED Course Orders Procedure Category Date Status Time Cbc With Differential LAB 04/09/24 Complete 10:59 Blood Cult LEONARDA 04/09/24 Complete 10:59 Basic Metabolic Panel LAB 04/09/24 Complete 10:59 Urinalysis Profile LAB 04/09/24 Complete 10:59 Testing, LAB 04/09/24 Complete Serum Hcg 10:59 Lactic Acid LAB 04/09/24 Complete 10:59 Procalcitonin LAB 04/09/24 Complete 10:59 Ct Abdomen/Pelvis W/O CT 04/09/24 Resulted Contrast 10:59 0.9%Nacl 1000ml (Ns PHA 04/09/24 Complete 1000ml) 11:00 Acetaminophen 500mg PHA 04/09/24 Complete Tab (Tylenol 500mg T 11:00 Culture Urine LEONARDA 04/09/24 Complete 11:29 Ketorolac PHA 04/09/24 Complete Tromethamine 15mg/Ml 12:00 Ondansetron 4mg Inj PHA 04/09/24 Complete (Zofran 4mg Inj) 12:00 Morphine 2mg Syg PHA 04/09/24 Complete (Morphine 2mg Syg) 12:00 Aztreonam (Azactam) PHA 04/09/24 Complete 12:00 Vital Signs Date Time Temp Pulse Resp B/P (MAP) Pulse Ox O2 Delivery O2 Flow Rate FiO2 04/09/24 11:21 100.9 102 18 116/97 98 Room Air* 0 21 04/09/24 11:15 100.9 04/09/24 10:55 100.9 102 24 150/77 98 Room Air [address] [address] IMAGING REPORT Signed PATIENT: EVERARDO WILLIAMSON MR#: [id number] : 1975 SEX: F AGE: 49 LOCATION: [facility] ORDER [id number] STATUS: REG ER REPORT#: [id number] SERVICE 1059 REASON: flank pain hx of kidney stones ORDERING PHYSICIAN: STEVE GARRIDO PROCEDURE: ABD PEL WO - CT ABDOMEN/PELVIS W/O CONTRAST CT ABDOMEN/PELVIS W/O CONTRAST REASON: flank pain hx of kidney stones COMPARISON: None. FINDINGS: Lung bases are clear. There are no focal liver lesions. There are normal-appearing kidneys.. There is no evidence of mass, stone or hydronephrosis. Spleen and pancreas appear unremarkable. There has been a previous cholecystectomy. Bowel loops appear unremarkable. There is no CT evidence of acute appendicitis. There is no evidence of free fluid or intraperitoneal air. There are no focal fluid collections. Aorta and retroperitoneum appear normal as do pelvic soft tissue structures. The anterior abdominal wall is intact. Osseous structures appear unremarkable. IMPRESSION: 1. Normal noncontrast CT of the abdomen and pelvis. CT was performed with one or more following dose reduction techniques: automated exposure control, adjustment of the mA and kv according to patient's size, or use of a iterative reconstruction technique. DICTATED BY: ROBBIE MYERS MD DATE: 04/09/24 1311 ELECTRONICALLY SIGNED BY: ROBBIE MYERS MD DATE: 04/09/24 1315 Critical Care Note Critical Time: other (Total critical care time was 33 minutes. Excluding time for procedures. Management of critically ill patient with concern for acute decompensation. Management included interpretation of laboratory values and imaging, hemodynamics, time for consultation with consultants and admitting physician.) DX & DISP Disposition: Inpatient Decision to Admit Date: Apr 09, 2024 Decision to Admit Time: 13:57 Departure Impression: Primary Impression: Sepsis Additional Impression: Complicated urinary tract infection Condition: Stable Referrals: SELF,REFERRAL (PCP) Time of Disposition: 13:55 I have reviewed the case, and I agree with, Diagnosis and Plan I performed the substantive portion of the visit. I have reviewed and personally made and approve the management plan that is documented in the note by myself or the BRENDEN. I acknowledge for responsibility for the patient's management plan. SETVE GARRIDO Apr 09, 2024 14:14 STEVEN LEONARD MD Apr 15, 2024 12:28
[2024-04-09] MEDS ORDERED: PROP10TA10 PO (14:28)
[2024-04-09] MEDS ORDERED: HYDROcodone/APAP 5/325 1 TAB TABLET PO PRN (14:30)
[2024-04-09] MEDS ORDERED: PoTASSium chloRIDE 20MEQ/100ML 100 ML IV PRN (15:00)
[2024-04-09] MEDS: 0.9%NACL 1000ML 1,000 ML IV SCH (15:40)
[2024-04-09] MEDS: APIXaban 5 MG TABLET PO SCH (20:40)
[2024-04-09] MEDS: FAMOTIDINE 20MG TAB PO SCH (20:41)
[2024-04-09] MEDS: methIMAZOLE 10 MG TAB PO SCH (20:41)
[2024-04-10] VITALS (8 sets, daily range): BP systolic 124–151; BP diastolic 61–87; PULSE 65–101; RESP 16–20; TEMP 98–101.8; O2SAT 98
[2024-04-10] MEDS: acetaMINOPHEN 325 MG TAB PO PRN (00:56)
[2024-04-10 05:25] LABS: BASOPHILS # (AUTO) 0.02 K/uL (0.00-0.20); BASOPHILS % (AUTO) 0.2 % (0.0-5.0); EOSINOPHILS # (AUTO) 0.02 K/uL (0.00-0.70); EOSINOPHILS % (AUTO) 0.2 % (0.0-8.0); HEMATOCRIT 37.2 % (36-48); IMMATURE GRANULOCYTE ABSOLUTE 0.04 K/uL (0-1); LYMPHOCYTES # (AUTO) 3.3 K/uL (1.0-4.8); LYMPHOCYTES % (AUTO) 27.9 % (21.0-51.0); MEAN CORPUSCULAR HEMOGLOBIN 28.4 pg (27.0-33.0); MEAN CORPUSCULAR HGB CONC 32.3 g/dL (32.0-36.0); MEAN CORPUSCULAR VOLUME 88.2 fL (79-99); MONOCYTES # (AUTO) 1.5 K/uL (0.1-1.0); MONOCYTES % (AUTO) 12.4 % (3.0-13.0); PLATELET COUNT (AUTO) 165 K/uL (130-400); RED BLOOD CELL COUNT(AUTO) 4.22 MIL/uL (4.00-5.50); RED CELL DISTRIBUTION WIDTH 13.9 % (11.0-15.5); WHITE BLOOD COUNT (AUTO) 11.8 K/uL (4.8-10.8)
[2024-04-10 08:06] LABS: ALBUMIN 3.1 g/dL (3.5-5.0); BILIRUBIN,TOTAL 1.3 mg/dL (0.2-1.0); CREATININE 0.5 mg/dL (0.5-1.0); MAGNESIUM 1.8 mg/dL (1.80-2.40); TOTAL PROTEIN, SERUM 6.9 g/dL (6.0-8.3)
[2024-04-10] MEDS: LISINOPRIL 40 MG TABLET PO SCH (08:39)
--- NOTE | 2024-04-10 08:58 | PN ---
[facility] PROGRESS NOTE Date of Service: Apr 10, 2024 Time of Service: 08:57 SUBJECTIVE: [ ] admission date: 04/09/24 PCP: Self referral This is a 49-year-old female who was recently hospitalized for similar symptoms dysuria right flank pain fevers and chills. Patient reports having fevers it started overnight with unbearable right flank pain. Alleviating factors none. Patient reports taking Tylenol for pain. On arrival patient's pain was 10/10 patient received morphine for pain. Pain is localized to right flank. Does not radiate. Patient denies nausea, vomiting, hematuria. ER workup CT abdomen and pelvis showed no kidney stones however slightly hydronephrosis. Patient reports she was on oral antibiotics upon discharge for five days. On this admission out we will bring Infectious Disease for antibiotics stewardship. Patient is allergic to penicillin. patient received one dose of Azactam 1 gm. in Ed 04/10/24 patient is seen and examined with the attending, reviewed chart and discussed. The patient appears acutely ill, febrile overnight and now: was given Tylenol. denies chest pain . Blood cultures in process. ID on board patient history of REVIEW OF SYSTEMS A 14 point ROS was obtained all relevant positives were documented otherwise ROS negative PHYSICAL EXAM GENERAL APPEARANCE: The patient is awake, alert, and oriented, in no acute cardiopulmonary distress. NEUROLOGICAL: Cranial nerves II-XII grossly intact. Motor is 5/5 in bilateral upper and lower extremities proximal to distal. No sensory deficits. HEENT: Face is symmetric. Pupils are equal and reactive. Extraocular movements are intact. NECK: Supple. No JVD. No thyromegaly. No submental, submandibular, pre- /postauricular, occipital or supraclavicular lymphadenopathy. CHEST: Normal chest expansion. No Telemetry. LUNGS: Absence of any rales, rhonchi or any wheezing. CARDIOVASCULAR: Regular. S1 and S2 normal. No appreciable rubs, murmurs or gallops. ABDOMEN: Soft, nontender, and nondistended. There is no rebound, voluntary guarding, or rigidity. : Right flank pain EXTREMITIES: Non-edematous and not cyanotic. No clubbing. Good capillary refill. SKIN: No skin breakdown. Vital Signs (last 8hr) Date Time Temp Pulse Resp B/P (MAP) Pulse Ox O2 Delivery O2 Flow Rate FiO2 04/10/24 08:39 100.8 04/10/24 08:27 100.8 101 19 151/76 98 04/10/24 04:00 98.1 65 18 124/61 99 Room Air LABS: Laboratory: Test 04/10/24 06:08 04/10/24 05:02 04/09/24 11:11 Range/Units Sodium Level 141 136-145 mmol/L Potassium Level 4.0 3.5-5.1 mmol/L Chloride Level 106 101-111 mmol/L Carbon Dioxide Level 22 21-32 mmol/L Blood Urea Nitrogen 15 7-18 mg/dL Creatinine 0.5 0.5-1.0 mg/dL Glomerular Filtration Rate Calc 116 >90 mL/min Random Glucose 86 70-105 mg/dL Total Calcium 9.0 8.5-10.1 mg/dL Magnesium Level 1.80 1.80-2.40 mg/dL Total Bilirubin 1.3 H 0.2-1.0 mg/dL Aspartate Amino Transf (AST/SGOT) 18 10-37 U/L Alanine Aminotransferase (ALT/SGPT) 30 12-78 U/L Alkaline Phosphatase 130 50-136 U/L C-Reactive Protein, Quantitative 47.60 H 0.5-3.0 mg/L Total Protein 6.9 6.0-8.3 g/dL Albumin 3.1 L 3.5-5.0 g/dL White Blood Count 11.8 H 4.8-10.8 K/uL Red Blood Count 4.22 4.00-5.50 MIL/uL Hemoglobin 12.0 12.0-16.0 g/dL Hematocrit 37.2 36-48 % Mean Corpuscular Volume 88.2 79-99 fL Mean Corpuscular Hemoglobin 28.4 27.0-33.0 pg Mean Corpuscular Hemoglobin Concent 32.3 32.0-36.0 g/dL Red Cell Distribution Width 13.9 11.0-15.5 % Platelet Count 165 130-400 K/uL Mean Platelet Volume 10.2 7.5-10.5 fL Immature Granulocyte % (Auto) 0.3 0-1 % Neutrophils (%) (Auto) 59.0 40.0-77.0 % Lymphocytes (%) (Auto) 27.9 21.0-51.0 % Monocytes (%) (Auto) 12.4 3.0-13.0 % Eosinophils (%) (Auto) 0.2 0.0-8.0 % Basophils (%) (Auto) 0.2 0.0-5.0 % Neutrophils # (Auto) 7.0 1.8-7.7 K/uL Lymphocytes # (Auto) 3.3 1.0-4.8 K/uL Monocytes # (Auto) 1.5 H 0.1-1.0 K/uL Eosinophils # (Auto) 0.02 0.00-0.70 K/uL Basophils # (Auto) 0.02 0.00-0.20 K/uL Absolute Immature Granulocyte (auto 0.04 0-1 K/uL Nucleated Red Blood Cells 0.0 0.0-0.19 % Urine Color YELLOW YELLOW Urine Appearance CLOUDY H CLEAR Urine pH 6.5 5.0-8.0 Urine Specific [place] 1.014 1.001-1.031 Urine Protein NEGATIVE NEGATIVE mg/dL Urine Glucose (UA) NEGATIVE NEGATIVE mg/dL Urine Ketones NEGATIVE NEGATIVE mg/dL Urine Occult Blood NEGATIVE NEGATIVE Urine Nitrate NEGATIVE NEGATIVE Urine Bilirubin NEGATIVE NEGATIVE mg/dL Urine Urobilinogen 0.2 0.2-1.0 mg/dL Urine Leukocyte Esterase 75 H NEGATIVE Fer/uL Urine RBC 6-10 H 0-1 /HPF Urine WBC 11-25 H 0-1 /HPF Urine Squamous Epithelial Cells RARE 0-2 /HPF Urine Bacteria MOD None Seen /HPF Lactic Acid Level 2.0 0.8-2.5 mmol/L Procalcitonin < 0.05 L 0.05-0.5 ng/mL Serum Test, Qualitative NEGATIVE NEGATIVE Current Medications Medications (Trade) Dose Ordered Sig/Leah Route PRN Reason Start Time Stop Time Status Last Admin Dose Admin Acetaminophen (TYLenol 325MG TAB) 650 mg Q4H PRN PO TEMPERATURE GREATER THAN 101.5 04/09/24 14:00 05/09/24 13:59 04/10/24 08:39 650 MG Acetaminophen/ Hydrocodone Bitart (NORco 5/325MG) 1 tab Q6H PRN PO MODERATE PAIN (4-6) 04/09/24 14:30 04/14/24 14:29 Apixaban (EliquIS) 5 mg BID PO 04/09/24 21:00 05/09/24 20:59 04/10/24 08:39 5 MG Aztreonam (Azactam) 1 gm Q8H IVPB 04/09/24 12:00 04/19/24 11:59 04/10/24 04:29 1 GM Famotidine (Pepcid 20mg Tab) 20 mg BID PO 04/09/24 21:00 05/09/24 20:59 04/10/24 08:39 20 MG Ketorolac Tromethamine (toRADol) 30 mg Q6H PRN IVP SEVERE PAIN (7-10) 04/09/24 14:00 04/09/24 14:08 DC Lisinopril (Prinivil 40mg) 40 mg DAILY PO 04/10/24 09:00 05/10/24 08:59 04/10/24 08:39 40 MG Magnesium Sulfate 50 ml @ 0 mls/hr PROTOCOL PRN IV low mag level 04/09/24 15:00 05/09/24 14:59 Methimazole (tapaZOLE) 10 mg TID PO 04/09/24 21:00 05/09/24 20:59 04/10/24 08:38 10 MG Ondansetron HCl (zoFRAN 4MG INJ) 4 mg Q6H PRN IVP NAUSEA/VOMITING 04/09/24 14:00 05/09/24 13:59 Potassium Chloride 100 ml @ 100 mls/hr AD PRN IV POTASSIUM PROTOCOL 04/09/24 15:00 05/09/24 14:59 Potassium Chloride (K-Dur/Klor-Con 20meq) 20 meq AD PRN PO POTASSIUM PROTOCOL 04/09/24 15:00 05/09/24 14:59 Potassium Chloride (KCl 10% Elixir 20meq/15ml) 20 meq AD PRN PO POTASSIUM PROTOCOL 04/09/24 15:00 05/09/24 14:59 Propranolol HCl (Inderal) 160 mg DAILY PO 04/10/24 09:00 04/09/24 14:26 DC Sodium Chloride 1,000 ml @ 75 mls/hr [id number] IV 04/09/24 14:30 05/09/24 14:29 04/09/24 15:40 75 MLS/HR DIAGNOSTICS / RADIOLOGY: [ ] ASSESSMENT: Sirs with organ dysfunction POA acute UTI: Normocytic normochromic anemia POA History of kidney stone POA Hypertension POA hyperthyroidism POA on Methimazole moderate protein calorie malnutrition POA PLAN: [ ] Sirs with organ dysfunction POA acute UTI: - Cont on IVF - Aztreonam 1gm Q 8 hrs - ID consulted - continue antiemetics as needed - urine/ blood culture in process - cont with pain management for adequate pain controlled restarted home medications: Eliquis, propranolol, lisinopril and Methimazole replaced electrolytes as needed to keep K+ > 4.0 Mag+ 2.0 PRN: MEDICATIONS Tylenol 650 mg po every 4 hrs for fever Zofran 4 mg IV every 6 hrs for n/v Hydralazine 5 mg IV every 4 hrs systolic pressure > 160 Supportive measures: DVT ppx, GI ppx all questions answered Supervising MD: Dr.s Olson c/d ATTESTATION BY PHYSICIAN I have seen and examined the patient. I reviewed the documentation, medical decision making, and treatment plan as noted by the resident provider above. I agree with the findings and plan of care. Angel Olson MD, [facility] NP Apr 10, 2024 08:58
[2024-04-10] MEDS ORDERED: PROPRANOLOL HCL 10 MG TAB PO SCH (09:00)
[2024-04-10] MEDS ORDERED: MEROPENEM 1 GM in 0.9%NACL 100ML 100 ML IVPB SCH (13:00)
[2024-04-10] MEDS: MEROPENEM 1 GM VIAL IVPB SCH (15:13)
--- NOTE | 2024-04-10 18:32 | NUR ---
Discharge Planning: Pt. states she lives with her sons. Contact number for Fermin Cruz is . PCP at [facility] is Dr. Cueva in [place] and preferred pharmacy is there at the clinic. Pt. states she is independent with all ADL's. No home health, provider services, or DME. DCP is for home. No d/c needs at present time. Addendum: 04/10/24 at 1834 by TANISHA CORONADO RN CM Amended: Links added.
[2024-04-11] VITALS (8 sets, daily range): BP systolic 122–138; BP diastolic 67–79; PULSE 78–87; RESP 18; TEMP 98.9–99.8; O2SAT 96–99
--- NOTE | 2024-04-11 01:40 | CONS ---
DATE OF SERVICE: 04/10/2024 INFECTIOUS DISEASE CONSULTATION REQUESTING PHYSICIAN: Saritha Styles NP REASON FOR CONSULTATION: Gram-negative sepsis, on antibiotic management. HISTORY OF PRESENT ILLNESS: The patient is a 49-year-old female with hypertension, hyperthyroidism and obesity and nephrolithiasis, who presented to the emergency room with fever, chills and dysuria. The patient also complained of right flank pain. T-max was 100.8. The patient had CT of the abdomen done, which came back normal. Urinalysis was positive and urine culture growing gram-negative christina. No cough. No hemoptysis. No pleuritic pain. No depression. No suicidal ideation. No heat or cold intolerance. The patient has dysuria but no hematuria. PAST MEDICAL HISTORY: * Hypertension. * Obesity. * Hyperthyroidism. * Nephrolithiasis. * UTI. * Obesity. PAST SURGICAL HISTORY: * Tonsillectomy. * Cholecystectomy. * section. * Right hip surgery. ALLERGIES: ZOSYN (tolerating carbapenem). CURRENT MEDICATIONS: Reviewed. SOCIAL HISTORY: Denies alcohol, tobacco or illicit drug use. FAMILY HISTORY: Noncontributory. REVIEW OF SYSTEMS: CONSTITUTIONAL: Positive for fever and chills. No weight loss or night sweats. EYES: No eye pain. No photophobia or diplopia. HENT: No sore throat. No rhinorrhea or earache. NECK: No neck pain or neck swelling. RESPIRATORY: No cough. No hemoptysis or pleuritic pain. CARDIOVASCULAR: No chest pain. No palpitations or orthopnea. GASTROINTESTINAL: Denies nausea, vomiting. Positive for right flank pain. GENITOURINARY: No dysuria, urgency or urinary frequency. CENTRAL NERVOUS SYSTEM: No headache, dyspnea or slurred speech. PSYCHIATRY: No depression. No suicidal ideation. PHYSICAL EXAMINATION: GENERAL: Young female, awake, not in distress. VITAL SIGNS: Temperature 100.8, pulse 85, respiratory rate 16 and BP 132/72. EYES: No icterus. Pupils are equal and reactive. HENT: No oral thrush seen. Moist oral mucosa. NECK: Supple. No JVD or thyromegaly. LUNGS: Good air entry. No rales. No rhonchi. CARDIOVASCULAR: S1, S2 regular. No murmur heard. ABDOMEN: Full, soft, nontender. Bowel sound is present. CENTRAL NERVOUS SYSTEM: Awake, alert and oriented x 3. No focal deficits. SKIN: No rashes. No itchiness. LYMPHATIC: No peripheral lymphadenopathy. BACK: No deformity. No pressure ulcer. HEMATOLOGIC: No bleeding or petechial lesions seen. LABORATORY DATA: Sodium 141, potassium 4.0, BUN 15, creatinine 0.5. WBC 11.8, hemoglobin 12.0 and platelets 165. Urine culture growing gram-negative christina. Blood culture, no growth for one day. RADIOLOGY: CT of the abdomen shows normal study. ASSESSMENT: A 49-year-old female presenting with fever and right flank pain. CURRENT PROBLEMS: Include: * Gram-negative sepsis. * Urinary tract infection. * Leukocytosis. * Hypertension. * Obesity. PLAN: * Discontinue aztreonam. * Start the patient on meropenem. * Continue Eliquis. * Continue pain management. * Continue nutritional support. * Follow up cultures. * Continue DVT prophylaxis. * The patient will be followed up closely. Thank you for allowing me to participate in the care of this patient. TID: [id number] RECEIPT: [id number]
[2024-04-11 04:46] LABS: BASOPHILS # (AUTO) 0.01 K/uL (0.00-0.20); BASOPHILS % (AUTO) 0.1 % (0.0-5.0); EOSINOPHILS # (AUTO) 0.08 K/uL (0.00-0.70); HEMATOCRIT 32.4 % (36-48); IMMATURE GRANULOCYTE ABSOLUTE 0.03 K/uL (0-1); LYMPHOCYTES # (AUTO) 2.3 K/uL (1.0-4.8); LYMPHOCYTES % (AUTO) 27.6 % (21.0-51.0); MEAN CORPUSCULAR HEMOGLOBIN 28.3 pg (27.0-33.0); MEAN CORPUSCULAR HGB CONC 32.7 g/dL (32.0-36.0); MEAN CORPUSCULAR VOLUME 86.4 fL (79-99); MONOCYTES # (AUTO) 1.1 K/uL (0.1-1.0); MONOCYTES % (AUTO) 13.3 % (3.0-13.0); NEUTROPHILS # (AUTO) 4.7 K/uL (1.8-7.7); NEUTROPHILS % (AUTO) 57.6 % (40.0-77.0); PLATELET COUNT (AUTO) 167 K/uL (130-400); RED BLOOD CELL COUNT(AUTO) 3.75 MIL/uL (4.00-5.50); RED CELL DISTRIBUTION WIDTH 13.7 % (11.0-15.5); WHITE BLOOD COUNT (AUTO) 8.2 K/uL (4.8-10.8)
[2024-04-11 05:33] LABS: ALBUMIN 2.7 g/dL (3.5-5.0); BILIRUBIN,TOTAL 0.8 mg/dL (0.2-1.0); CREATININE 0.4 mg/dL (0.5-1.0); MAGNESIUM 1.5 mg/dL (1.80-2.40); POTASSIUM 3.7 mmol/L (3.5-5.1); TOTAL PROTEIN, SERUM 6.3 g/dL (6.0-8.3)
[2024-04-11] MEDS: MAGNESIUM 2GM PREMIX 50ML 50 ML IV PRN (06:21)
[2024-04-11] MEDS: PoTASSium chl 10% ELIXIR 20MEQ 20 MEQ/15 ML UDCUP PO PRN (06:29)
--- NOTE | 2024-04-11 12:10 | PN ---
[facility] PROGRESS NOTE Date of Service: Apr 11, 2024 Time of Service: 12:04 SUBJECTIVE: [ ] admission date: 04/09/24 PCP: Self referral This is a 49-year-old female who was recently hospitalized for similar symptoms dysuria right flank pain fevers and chills. Patient reports having fevers it started overnight with unbearable right flank pain. Alleviating factors none. Patient reports taking Tylenol for pain. On arrival patient's pain was 10/10 patient received morphine for pain. Pain is localized to right flank. Does not radiate. Patient denies nausea, vomiting, hematuria. ER workup CT abdomen and pelvis showed no kidney stones however slightly hydronephrosis. Patient reports she was on oral antibiotics upon discharge for five days. On this admission out we will bring Infectious Disease for antibiotics stewardship. Patient is allergic to penicillin. patient received one dose of Azactam 1 gm. in Ed 04/10/24 patient is seen and examined with the attending, reviewed chart and discussed. The patient appears acutely ill, febrile overnight and now: was given Tylenol. denies chest pain . Blood cultures in process. ID on board patient history of uti 04/11/24 patient is seen and examined reviewed chart discussed case with attending. Patient was afebrile since this morning. Urine cultures Gram- negative Klebsiella pneumoniae she is currently on Merrem been every8 hours 1 g leukocytosis resolved. We will wait for final ID recommendations prior to discharge. REVIEW OF SYSTEMS A 14 point ROS was obtained all relevant positives were documented otherwise ROS negative PHYSICAL EXAM GENERAL APPEARANCE: The patient is awake, alert, and oriented, in no acute cardiopulmonary distress. NEUROLOGICAL: Cranial nerves II-XII grossly intact. Motor is 5/5 in bilateral upper and lower extremities proximal to distal. No sensory deficits. HEENT: Face is symmetric. Pupils are equal and reactive. Extraocular movements are intact. NECK: Supple. No JVD. No thyromegaly. No submental, submandibular, pre- /postauricular, occipital or supraclavicular lymphadenopathy. CHEST: Normal chest expansion. No Telemetry. LUNGS: Absence of any rales, rhonchi or any wheezing. CARDIOVASCULAR: Regular. S1 and S2 normal. No appreciable rubs, murmurs or gallops. ABDOMEN: Soft, nontender, and nondistended. There is no rebound, voluntary guarding, or rigidity. : Right flank pain EXTREMITIES: Non-edematous and not cyanotic. No clubbing. Good capillary refill. SKIN: No skin breakdown. Vital Signs (last 8hr) Date Time Temp Pulse Resp B/P (MAP) Pulse Ox O2 Delivery O2 Flow Rate FiO2 04/11/24 11:32 99.5 86 18 137/71 100 Room Air 04/11/24 08:09 99.3 86 18 138/73 98 Room Air LABS: Laboratory: Test 04/11/24 04:37 04/10/24 06:08 Range/Units White Blood Count 8.2 # 4.8-10.8 K/uL Red Blood Count 3.75 L 4.00-5.50 MIL/uL Hemoglobin 10.6 L 12.0-16.0 g/dL Hematocrit 32.4 L 36-48 % Mean Corpuscular Volume 86.4 79-99 fL Mean Corpuscular Hemoglobin 28.3 27.0-33.0 pg Mean Corpuscular Hemoglobin Concent 32.7 32.0-36.0 g/dL Red Cell Distribution Width 13.7 11.0-15.5 % Platelet Count 167 130-400 K/uL Mean Platelet Volume 10.4 7.5-10.5 fL Immature Granulocyte % (Auto) 0.4 0-1 % Neutrophils (%) (Auto) 57.6 40.0-77.0 % Lymphocytes (%) (Auto) 27.6 21.0-51.0 % Monocytes (%) (Auto) 13.3 H 3.0-13.0 % Eosinophils (%) (Auto) 1.0 0.0-8.0 % Basophils (%) (Auto) 0.1 0.0-5.0 % Neutrophils # (Auto) 4.7 1.8-7.7 K/uL Lymphocytes # (Auto) 2.3 1.0-4.8 K/uL Monocytes # (Auto) 1.1 H 0.1-1.0 K/uL Eosinophils # (Auto) 0.08 0.00-0.70 K/uL Basophils # (Auto) 0.01 0.00-0.20 K/uL Absolute Immature Granulocyte (auto 0.03 0-1 K/uL Nucleated Red Blood Cells 0.0 0.0-0.19 % Sodium Level 141 136-145 mmol/L Potassium Level 3.7 3.5-5.1 mmol/L Chloride Level 109 101-111 mmol/L Carbon Dioxide Level 23 21-32 mmol/L Blood Urea Nitrogen 13 7-18 mg/dL Creatinine 0.4 L 0.5-1.0 mg/dL Glomerular Filtration Rate Calc 123 >90 mL/min Random Glucose 101 70-105 mg/dL Total Calcium 8.8 8.5-10.1 mg/dL Magnesium Level 1.50 L 1.80-2.40 mg/dL Total Bilirubin 0.8 # 0.2-1.0 mg/dL Aspartate Amino Transf (AST/SGOT) 16 10-37 U/L Alanine Aminotransferase (ALT/SGPT) 30 12-78 U/L Alkaline Phosphatase 108 50-136 U/L Total Protein 6.3 6.0-8.3 g/dL Albumin 2.7 L 3.5-5.0 g/dL C-Reactive Protein, Quantitative 47.60 H 0.5-3.0 mg/L Current Medications Medications (Trade) Dose Ordered Sig/Leah Route PRN Reason Start Time Stop Time Status Last Admin Dose Admin Acetaminophen (TYLenol 325MG TAB) 650 mg Q4H PRN PO TEMPERATURE GREATER THAN 101.5 04/09/24 14:00 05/09/24 13:59 04/10/24 20:23 650 MG Acetaminophen/ Hydrocodone Bitart (NORco 5/325MG) 1 tab Q6H PRN PO MODERATE PAIN (4-6) 04/09/24 14:30 04/14/24 14:29 Apixaban (EliquIS) 5 mg BID PO 04/09/24 21:00 05/09/24 20:59 04/11/24 09:49 5 MG Aztreonam (Azactam) 1 gm Q8H IVPB 04/09/24 12:00 04/10/24 12:53 DC 04/10/24 12:14 1 GM Famotidine (Pepcid 20mg Tab) 20 mg BID PO 04/09/24 21:00 05/09/24 20:59 04/11/24 09:49 20 MG Ketorolac Tromethamine (toRADol) 30 mg Q6H PRN IVP SEVERE PAIN (7-10) 04/09/24 14:00 04/09/24 14:08 DC Lisinopril (Prinivil 40mg) 40 mg DAILY PO 04/10/24 09:00 05/10/24 08:59 04/11/24 09:49 40 MG Magnesium Sulfate 50 ml @ 0 mls/hr PROTOCOL PRN IV low mag level 04/09/24 15:00 05/09/24 14:59 04/11/24 06:21 10 MLS/HR Meropenem (Merrem) 1 gm Q8H IVPB 04/10/24 13:00 04/20/24 12:59 04/11/24 05:11 1 GM Meropenem 1 gm/ Sodium Chloride 100 ml @ 33.333 mls/ hr Q8H IVPB 04/10/24 13:00 04/10/24 12:59 DC Methimazole (tapaZOLE) 10 mg TID PO 04/09/24 21:00 05/09/24 20:59 04/11/24 09:48 10 MG Ondansetron HCl (zoFRAN 4MG INJ) 4 mg Q6H PRN IVP NAUSEA/VOMITING 04/09/24 14:00 05/09/24 13:59 Potassium Chloride 100 ml @ 100 mls/hr AD PRN IV POTASSIUM PROTOCOL 04/09/24 15:00 05/09/24 14:59 Potassium Chloride (K-Dur/Klor-Con 20meq) 20 meq AD PRN PO POTASSIUM PROTOCOL 04/09/24 15:00 05/09/24 14:59 Potassium Chloride (KCl 10% Elixir 20meq/15ml) 20 meq AD PRN PO POTASSIUM PROTOCOL 04/09/24 15:00 05/09/24 14:59 04/11/24 09:48 20 MEQ Propranolol HCl (Inderal) 160 mg DAILY PO 04/10/24 09:00 04/09/24 14:26 DC Sodium Chloride 1,000 ml @ 75 mls/hr [id number] IV 04/09/24 14:30 05/09/24 14:29 04/10/24 12:14 75 MLS/HR DIAGNOSTICS / RADIOLOGY: [ ] ASSESSMENT: Sirs with organ dysfunction POA acute UTI: gram negative Klebsiella pneumoniae POA Normocytic normochromic anemia POA History of kidney stone POA Hypertension POA hyperthyroidism POA on Methimazole moderate protein calorie malnutrition POA PLAN: [ ] Sirs with organ dysfunction POA acute UTI: gram negative Klebsiella pneumoniae - Heplock fluids - ID is following changed antibiotics to Merrem 1 gm IV q8hrs - continue antiemetics as needed - blood culture so far negative - cont with pain management for adequate pain controlled restarted home medications: Eliquis, propranolol, lisinopril and Methimazole replaced electrolytes as needed to keep K+ > 4.0 Mag+ 2.0 PRN: MEDICATIONS Tylenol 650 mg po every 4 hrs for fever Zofran 4 mg IV every 6 hrs for n/v Hydralazine 5 mg IV every 4 hrs systolic pressure > 160 Supportive measures: DVT ppx, GI ppx all questions answered Supervising MD: Dr.s Olson c/d ATTESTATION BY PHYSICIAN I have seen and examined the patient. I reviewed the documentation, medical decision making, and treatment plan as noted by the resident provider above. I agree with the findings and plan of care. Angel Olson MD, ELIZABETH NP Apr 11, 2024 12:10
--- NOTE | 2024-04-11 20:59 | PN ---
INFECTIOUS DISEASE PROGRESS NOTE Date of Service: Apr 11, 2024 SUBJECTIVE: This is a 49-year-old female patient with past medical history of left kidney stones and urinary tract infection who was admitted to the hospital with right flank pain. A urine culture collected on admission came back positive for Klebsiella pneumoniae. Patient was seen and examined at bedside in room 308. Patient is awake, alert and oriented x3. Patient continues on Meropenem 1 g IV every 8 hours or urinary tract infection with Klebsiella pneumoniae. Patient continues with low-grade fevers with the last one of 99.9 at 4:00 a.m. this morning. The WBC however has now trended down to 8.2. We will continue to monitor patient. PHYSICAL EXAM EYES: Anicteric. Pupils equal and reactive. HENT: No oral thrush seen, moist Oral mucosa NECK: Supple, no JVD or thyromegaly. LUNGS: Good air entry. No rales, no rhonchi. CARDIOVASCULAR: S1, S2 regular. No murmur heard. ABDOMEN: Soft, non tender, bowel sounds present, no organomegaly CENTRAL NERVOUS SYSTEM: Awake, alert, oriented x 3. No focal deficits. SKIN: No rashes, no swelling. LYMPHATICS: No peripheral lymphadenopathy MUSCULOSKELETAL: No joint swelling, erythema or tenderness. EXTREMITIES: No cyanosis or clubbing BACK: No deformity, no pressure ulcer. GENITOURINARY: No dysuria or hematuria Vital Sign (Last 12 Hours) 04/11/24 04/11/24 11:32 16:05 Temp 99.5 99.1 Pulse 86 86 Resp 18 18 B/P (MAP) 137/71 132/75 Pulse Ox 100 99 O2 Delivery Room Air Room Air LABS: Laboratory: Test 04/11/24 04:37 04/10/24 06:08 Range/Units White Blood Count 8.2 # 4.8-10.8 K/uL Red Blood Count 3.75 L 4.00-5.50 MIL/uL Hemoglobin 10.6 L 12.0-16.0 g/dL Hematocrit 32.4 L 36-48 % Mean Corpuscular Volume 86.4 79-99 fL Mean Corpuscular Hemoglobin 28.3 27.0-33.0 pg Mean Corpuscular Hemoglobin Concent 32.7 32.0-36.0 g/dL Red Cell Distribution Width 13.7 11.0-15.5 % Platelet Count 167 130-400 K/uL Mean Platelet Volume 10.4 7.5-10.5 fL Immature Granulocyte % (Auto) 0.4 0-1 % Neutrophils (%) (Auto) 57.6 40.0-77.0 % Lymphocytes (%) (Auto) 27.6 21.0-51.0 % Monocytes (%) (Auto) 13.3 H 3.0-13.0 % Eosinophils (%) (Auto) 1.0 0.0-8.0 % Basophils (%) (Auto) 0.1 0.0-5.0 % Neutrophils # (Auto) 4.7 1.8-7.7 K/uL Lymphocytes # (Auto) 2.3 1.0-4.8 K/uL Monocytes # (Auto) 1.1 H 0.1-1.0 K/uL Eosinophils # (Auto) 0.08 0.00-0.70 K/uL Basophils # (Auto) 0.01 0.00-0.20 K/uL Absolute Immature Granulocyte (auto 0.03 0-1 K/uL Nucleated Red Blood Cells 0.0 0.0-0.19 % Sodium Level 141 136-145 mmol/L Potassium Level 3.7 3.5-5.1 mmol/L Chloride Level 109 101-111 mmol/L Carbon Dioxide Level 23 21-32 mmol/L Blood Urea Nitrogen 13 7-18 mg/dL Creatinine 0.4 L 0.5-1.0 mg/dL Glomerular Filtration Rate Calc 123 >90 mL/min Random Glucose 101 70-105 mg/dL Total Calcium 8.8 8.5-10.1 mg/dL Magnesium Level 1.50 L 1.80-2.40 mg/dL Total Bilirubin 0.8 # 0.2-1.0 mg/dL Aspartate Amino Transf (AST/SGOT) 16 10-37 U/L Alanine Aminotransferase (ALT/SGPT) 30 12-78 U/L Alkaline Phosphatase 108 50-136 U/L Total Protein 6.3 6.0-8.3 g/dL Albumin 2.7 L 3.5-5.0 g/dL C-Reactive Protein, Quantitative 47.60 H 0.5-3.0 mg/L ASSESSMENT: Urinary Tract infection with Klebsiella pneumoniae. Failed outpatient antibiotic therapy. Leukocytosis, resolving. Nephrolithiasis. PLAN: Continue Meropenem. Continue GI prophylaxis. Continue pain management. We will monitor electrolytes. This case was reviewed and discussed with my supervising physician and the above assessment and plan was formulated and agreed upon. ATTESTATION BY PHYSICIAN I have seen and examined the patient. I reviewed the documentation, medical decision making, and treatment plan as noted by the mid-level provider above. I agree with the findings and plan of care. JONES MALLOY MD, [facility] Apr 11, 2024 20:59
[2024-04-12] VITALS: BP 135/61; PULSE 90; RESP 18; TEMP 98.8
[2024-04-12 04:00] VITALS: BP 132/56; PULSE 70; RESP 18; TEMP 98.6
[2024-04-12 04:20] LABS: BASOPHILS # (AUTO) 0.01 K/uL (0.00-0.20); BASOPHILS % (AUTO) 0.1 % (0.0-5.0); EOSINOPHILS # (AUTO) 0.14 K/uL (0.00-0.70); EOSINOPHILS % (AUTO) 2.1 % (0.0-8.0); HEMATOCRIT 32.5 % (36-48); IMMATURE GRANULOCYTE ABSOLUTE 0.03 K/uL (0-1); LYMPHOCYTES # (AUTO) 2.2 K/uL (1.0-4.8); MEAN CORPUSCULAR HEMOGLOBIN 28.8 pg (27.0-33.0); MEAN CORPUSCULAR HGB CONC 32.9 g/dL (32.0-36.0); MEAN CORPUSCULAR VOLUME 87.4 fL (79-99); MONOCYTES # (AUTO) 0.9 K/uL (0.1-1.0); MONOCYTES % (AUTO) 12.7 % (3.0-13.0); NEUTROPHILS # (AUTO) 3.5 K/uL (1.8-7.7); NEUTROPHILS % (AUTO) 51.7 % (40.0-77.0); PLATELET COUNT (AUTO) 169 K/uL (130-400); RED BLOOD CELL COUNT(AUTO) 3.72 MIL/uL (4.00-5.50); RED CELL DISTRIBUTION WIDTH 13.5 % (11.0-15.5); WHITE BLOOD COUNT (AUTO) 6.8 K/uL (4.8-10.8)
[2024-04-12 04:36] LABS: ALBUMIN 2.7 g/dL (3.5-5.0); BILIRUBIN,TOTAL 0.5 mg/dL (0.2-1.0); CREATININE 0.3 mg/dL (0.5-1.0); MAGNESIUM 1.8 mg/dL (1.80-2.40); POTASSIUM 3.7 mmol/L (3.5-5.1); TOTAL PROTEIN, SERUM 6.4 g/dL (6.0-8.3)
[2024-04-12 07:57] VITALS: BP 125/69; PULSE 71; RESP 18; TEMP 98.3
[2024-04-12 08:05] VITALS: O2SAT 97
[2024-04-12] MEDS: PoTASSium chloRIDE 20MEQ ER 20 MEQ ERTAB PO PRN (08:07)
--- NOTE | 2024-04-12 08:42 | PN ---
[facility] PROGRESS NOTE Date of Service: Apr 12, 2024 Time of Service: 08:39 SUBJECTIVE: [ ] admission date: 04/09/24 PCP: Self referral This is a 49-year-old female who was recently hospitalized for similar symptoms dysuria right flank pain fevers and chills. Patient reports having fevers it started overnight with unbearable right flank pain. Alleviating factors none. Patient reports taking Tylenol for pain. On arrival patient's pain was 10/10 patient received morphine for pain. Pain is localized to right flank. Does not radiate. Patient denies nausea, vomiting, hematuria. ER workup CT abdomen and pelvis showed no kidney stones however slightly hydronephrosis. Patient reports she was on oral antibiotics upon discharge for five days. On this admission out we will bring Infectious Disease for antibiotics stewardship. Patient is allergic to penicillin. patient received one dose of Azactam 1 gm. in Ed 04/10/24 patient is seen and examined with the attending, reviewed chart and discussed. The patient appears acutely ill, febrile overnight and now: was given Tylenol. denies chest pain . Blood cultures in process. ID on board patient history of uti 04/11/24 patient is seen and examined reviewed chart discussed case with attending. Patient was afebrile since this morning. Urine cultures Gram- negative Klebsiella pneumoniae she is currently on Merrem been every8 hours 1 g leukocytosis resolved. We will wait for final ID recommendations prior to discharge. 04/12/24 patient seen and examiend with Attending: reviewed chart and discussed plan of care. Positive cultures for gram negative Klebsiella pneumoniae continue with Merrem IV 8 hrs will wait for ID final recommendation on discharged antibiotics. temp max: 99.0 REVIEW OF SYSTEMS A 14 point ROS was obtained all relevant positives were documented otherwise ROS negative PHYSICAL EXAM GENERAL APPEARANCE: The patient is awake, alert, and oriented, in no acute cardiopulmonary distress. NEUROLOGICAL: Cranial nerves II-XII grossly intact. Motor is 5/5 in bilateral upper and lower extremities proximal to distal. No sensory deficits. HEENT: Face is symmetric. Pupils are equal and reactive. Extraocular movements are intact. NECK: Supple. No JVD. No thyromegaly. No submental, submandibular, pre- /postauricular, occipital or supraclavicular lymphadenopathy. CHEST: Normal chest expansion. No Telemetry. LUNGS: Absence of any rales, rhonchi or any wheezing. CARDIOVASCULAR: Regular. S1 and S2 normal. No appreciable rubs, murmurs or gallops. ABDOMEN: Soft, nontender, and nondistended. There is no rebound, voluntary guarding, or rigidity. : Right flank pain EXTREMITIES: Non-edematous and not cyanotic. No clubbing. Good capillary refill. SKIN: No skin breakdown. Vital Signs (last 8hr) Date Time Temp Pulse Resp B/P (MAP) Pulse Ox O2 Delivery O2 Flow Rate FiO2 04/12/24 07:57 98.2 71 18 125/69 97 Room Air 21 04/12/24 04:00 98.6 70 18 132/56 99 Room Air LABS: Laboratory: Test 04/12/24 04:10 Range/Units White Blood Count 6.8 4.8-10.8 K/uL Red Blood Count 3.72 L 4.00-5.50 MIL/uL Hemoglobin 10.7 L 12.0-16.0 g/dL Hematocrit 32.5 L 36-48 % Mean Corpuscular Volume 87.4 79-99 fL Mean Corpuscular Hemoglobin 28.8 27.0-33.0 pg Mean Corpuscular Hemoglobin Concent 32.9 32.0-36.0 g/dL Red Cell Distribution Width 13.5 11.0-15.5 % Platelet Count 169 130-400 K/uL Mean Platelet Volume 10.3 7.5-10.5 fL Immature Granulocyte % (Auto) 0.4 0-1 % Neutrophils (%) (Auto) 51.7 40.0-77.0 % Lymphocytes (%) (Auto) 33.0 21.0-51.0 % Monocytes (%) (Auto) 12.7 3.0-13.0 % Eosinophils (%) (Auto) 2.1 0.0-8.0 % Basophils (%) (Auto) 0.1 0.0-5.0 % Neutrophils # (Auto) 3.5 1.8-7.7 K/uL Lymphocytes # (Auto) 2.2 1.0-4.8 K/uL Monocytes # (Auto) 0.9 0.1-1.0 K/uL Eosinophils # (Auto) 0.14 0.00-0.70 K/uL Basophils # (Auto) 0.01 0.00-0.20 K/uL Absolute Immature Granulocyte (auto 0.03 0-1 K/uL Nucleated Red Blood Cells 0.0 0.0-0.19 % Sodium Level 143 136-145 mmol/L Potassium Level 3.7 3.5-5.1 mmol/L Chloride Level 109 101-111 mmol/L Carbon Dioxide Level 25 21-32 mmol/L Blood Urea Nitrogen 15 7-18 mg/dL Creatinine 0.3 L 0.5-1.0 mg/dL Glomerular Filtration Rate Calc 132 >90 mL/min Random Glucose 103 70-105 mg/dL Total Calcium 8.9 8.5-10.1 mg/dL Magnesium Level 1.80 1.80-2.40 mg/dL Total Bilirubin 0.5 # 0.2-1.0 mg/dL Aspartate Amino Transf (AST/SGOT) 21 10-37 U/L Alanine Aminotransferase (ALT/SGPT) 35 12-78 U/L Alkaline Phosphatase 103 50-136 U/L Total Protein 6.4 6.0-8.3 g/dL Albumin 2.7 L 3.5-5.0 g/dL Current Medications Medications (Trade) Dose Ordered Sig/Leah Route PRN Reason Start Time Stop Time Status Last Admin Dose Admin Acetaminophen (TYLenol 325MG TAB) 650 mg Q4H PRN PO TEMPERATURE GREATER THAN 101.5 04/09/24 14:00 05/09/24 13:59 04/10/24 20:23 650 MG Acetaminophen/ Hydrocodone Bitart (NORco 5/325MG) 1 tab Q6H PRN PO MODERATE PAIN (4-6) 04/09/24 14:30 04/14/24 14:29 Apixaban (EliquIS) 5 mg BID PO 04/09/24 21:00 05/09/24 20:59 04/12/24 08:05 5 MG Aztreonam (Azactam) 1 gm Q8H IVPB 04/09/24 12:00 04/10/24 12:53 DC 04/10/24 12:14 1 GM Famotidine (Pepcid 20mg Tab) 20 mg BID PO 04/09/24 21:00 05/09/24 20:59 04/12/24 08:05 20 MG Ketorolac Tromethamine (toRADol) 30 mg Q6H PRN IVP SEVERE PAIN (7-10) 04/09/24 14:00 04/09/24 14:08 DC Lisinopril (Prinivil 40mg) 40 mg DAILY PO 04/10/24 09:00 05/10/24 08:59 04/12/24 08:05 40 MG Magnesium Sulfate 50 ml @ 0 mls/hr PROTOCOL PRN IV low mag level 04/09/24 15:00 05/09/24 14:59 04/12/24 05:50 25 MLS/HR Meropenem (Merrem) 1 gm Q8H IVPB 04/10/24 13:00 04/20/24 12:59 04/12/24 04:57 1 GM Meropenem 1 gm/ Sodium Chloride 100 ml @ 33.333 mls/ hr Q8H IVPB 04/10/24 13:00 04/10/24 12:59 DC Methimazole (tapaZOLE) 10 mg TID PO 04/09/24 21:00 05/09/24 20:59 04/12/24 08:05 10 MG Ondansetron HCl (zoFRAN 4MG INJ) 4 mg Q6H PRN IVP NAUSEA/VOMITING 04/09/24 14:00 05/09/24 13:59 Potassium Chloride 100 ml @ 100 mls/hr AD PRN IV POTASSIUM PROTOCOL 04/09/24 15:00 05/09/24 14:59 Potassium Chloride (K-Dur/Klor-Con 20meq) 20 meq AD PRN PO POTASSIUM PROTOCOL 04/09/24 15:00 05/09/24 14:59 04/12/24 08:07 20 MEQ Potassium Chloride (KCl 10% Elixir 20meq/15ml) 20 meq AD PRN PO POTASSIUM PROTOCOL 04/09/24 15:00 05/09/24 14:59 04/11/24 09:48 20 MEQ Propranolol HCl (Inderal) 160 mg DAILY PO 04/10/24 09:00 04/09/24 14:26 DC Sodium Chloride 1,000 ml @ 75 mls/hr [id number] IV 04/09/24 14:30 04/11/24 12:09 DC 04/10/24 12:14 75 MLS/HR DIAGNOSTICS / RADIOLOGY: [ ] ASSESSMENT: Sirs with organ dysfunction POA acute UTI: gram negative Klebsiella pneumoniae POA Normocytic normochromic anemia POA History of kidney stone POA Hypertension POA hyperthyroidism POA on Methimazole moderate protein calorie malnutrition POA PLAN: [ ] Sirs with organ dysfunction POA acute UTI: gram negative Klebsiella pneumoniae - Heplock fluids - ID is following changed antibiotics to Merrem 1 gm IV q8hrs - continue antiemetics as needed - blood culture so far negative - cont with pain management for adequate pain controlled restarted home medications: Eliquis, propranolol, lisinopril and Methimazole replaced electrolytes as needed to keep K+ > 4.0 Mag+ 2.0 PRN: MEDICATIONS Tylenol 650 mg po every 4 hrs for fever Zofran 4 mg IV every 6 hrs for n/v Hydralazine 5 mg IV every 4 hrs systolic pressure > 160 Supportive measures: DVT ppx, GI ppx all questions answered Supervising MD: Dr.s Olson c/d ATTESTATION BY PHYSICIAN I have seen and examined the patient. I reviewed the documentation, medical decision making, and treatment plan as noted by the resident provider above. I agree with the findings and plan of care. Angel Olson MD, ELIZABETH NP Apr 12, 2024 08:42
[2024-04-12 12:00] VITALS: BP 115/63; PULSE 74; RESP 18; TEMP 98.4
[2024-04-12 16:00] VITALS: BP 124/63; PULSE 71; RESP 18; TEMP 98.6
--- NOTE | 2024-04-12 17:25 | DS ---
Discharge Summary Hospital Course Summary: ADMISSION DATE: admission date: 04/09/24 PCP: Self referral This is a 49-year-old female who was recently hospitalized for similar symptoms dysuria right flank pain fevers and chills. Patient reports having fevers it started overnight with unbearable right flank pain. Alleviating factors none. Patient reports taking Tylenol for pain. On arrival patient's pain was 10/10 patient received morphine for pain. Pain is localized to right flank. Does not radiate. Patient denies nausea, vomiting, hematuria. ER workup CT abdomen and pelvis showed no kidney stones however slightly hydronephrosis. Patient reports she was on oral antibiotics upon discharge for five days. On this admission out we will bring Infectious Disease for antibiotics stewardship. Patient is allergic to penicillin. patient received one dose of Azactam 1 gm. in Ed during the course of stay: The patient was followed by ID: the patient was on Merrem IV every 8 hrs, final cultures positive gram negative Klebsiella pneumoniae the patient has been afebrile over 36 hrs ID cleared the patient for discharged : on oral antibiotics Cephalexin 500 mg po tid as directed. the patient is clinically stable for discharged. Cruise Consultant(s): RUN DATE: 04/11/24 [facility] [address] 1 RUN TIME: [id number] [address], [place] [address] Department of Laboratories [facility] # [id number] Correctional Program Specialist: Analy Hill DO Specimen Report PATIENT: EVERARDO WILLIAMSON ACCT: [id number] LOC: [facility] U: [id number] AGE/SX: 49/F ROOM: [facility] RE04/09/[address]: NAA ROJO MD : 1975 BED: 1 DIS: STATUS: ADM IN TLOC: SPEC: [id number] GERBER: 04/09/24 STATUS: COMP REQ: [id number] RECD: 04/10/[address]: STEVE GARRIDO SOURCE: [facility] [place] 04/10/24 CHELSEY QUEEN: JOAO SPDES: CLEAN CAT SELF,REFERRAL ORDERED: AERO ID & SENS Procedure Result Lionel Date-Time AEROBIC ID & SENSITIVITIES Final 04/11/24-738 [facility] COLONY DESCRIPTION: DAY 1: COLONY COUNT: >100,000 CFU/ML GRAM NEGATIVE RODS IDENTIFICATION AND SENSITIVITY TO FOLLOW KLEBSIELLA PNEUMONIAE K PNEUMO M.I.C. RX --------- ---- AZTREONAM <=4 S CEFAZOLIN <=2 S CEFTAZIDIME/AVIBACTAM <=8 S GENTAMICIN <=2 S LEVOFLOXACIN <=0.5 S NITROFURANTOIN <=32 S MEROPENEM <=1 S PIPERACILLIN/TAZOBACTAM <=8 S TRIMETHOPRIM/SUFLAMETHOXAZOLE <=2/38 S @ [facility] Test Performed at: [facility] [address], [place], [place] Medical [employer] Architect: Enzo Beckford D.O. END OF REPORT Assessment/Plan: DISCHARGED DX'S: Sirs with organ dysfunction POA acute UTI: gram negative Klebsiella pneumoniae POA Normocytic normochromic anemia POA History of kidney stone POA Hypertension POA hyperthyroidism POA on Methimazole moderate protein calorie malnutrition POA PLAN: [ ] ADMISSION DATE: 04/09/24 DISCHARGE DATE: 04/12/24 DISPOSITION: HOME CONDITION: Stable DATABASE MODELER(S): Infectious disease FOLLOW UP APPOINTMENT(S): Self referral PROCEDURES: None IMAGING (S) report attached to summary : MICROBIOLOGY: report attached to summary; urine cultures ACTIVITY: ab kamla HOME MEDICATIONS reviewed remain the same CHANGES ON HOME MEDICATIONS: None NEW MEDICATIONS Cephalexin 500 mg po TID as directed TEACHING: : to complete whole cycle of antibiotics as directed, side effect and adverse reaction. Emergency instructions: The patient was instructed to present to the nearest Emergency Department or call 911 should their symptoms return or worsen. Home Medications: Home Medications: Active Scripts Apixaban (Eliquis) 5 Mg Tablet, 1 TAB PO BID for 30 Days, #60 TAB 0 Refills Prov:CHIO HUA MD 03/14/24 Methimazole (Methimazole) 10 Mg Tablet, 1 TAB PO TID for 30 Days, #90 TAB 0 Refills Prov:CHIO HUA MD 03/14/24 Lisinopril (Lisinopril) 40 Mg Tablet, 40 MG PO DAILY, #30 TAB Prov:LUTHER KOHLER 01/28/24 Reported Medications Propranolol HCl (Propranolol HCl) 10 Mg Tablet, 1 TAB PO DAILY for 30 Days, #60 TAB 0 Refills 04/09/24 Discontinued Scripts Levofloxacin (Levofloxacin) 250 Mg Tablet, 1 TAB PO DAILY for 5 Days, #5 TAB 0 Refills Prov:CHIO HUA MD 03/14/24 Propranolol HCl (Inderal LA) 160 Mg Cap.sa.24h, 1 CAP PO DAILY for 30 Days, #30 CAP 0 Refills Prov:CHIO HUA MD 03/14/24 Continued Medications: Apixaban (Eliquis) 5 Mg Tablet 1 TAB PO BID for 30 Days, #60 TAB 0 Refills Lisinopril (Lisinopril) 40 Mg Tablet 40 MG PO DAILY, #30 TAB Methimazole (Methimazole) 10 Mg Tablet 1 TAB PO TID for 30 Days, #90 TAB 0 Refills Propranolol HCl (Propranolol HCl) 10 Mg Tablet 1 TAB PO DAILY for 30 Days, #60 TAB 0 Refills Time spent arranging discharge: 31-60 minutes ATTESTATION BY PHYSICIAN I have seen and examined the patient. I reviewed the documentation, medical decision making, and treatment plan as noted by the resident provider above. I agree with the findings and plan of care. Naa Rojo MD, ELIZABETH NP Apr 12, 2024 17:25
--- NOTE | 2024-04-12 17:46 | NUR ---
DISCHARGE PIV DC'D PRESCRIPTION HANDED TO PATIENT DISCHARGE INSTRUCTIONS GIVEN TO THE PATIENT ALL QUESTIONS ANSWERED PRIOR TO DISCHARGE
--- NOTE | 2024-04-12 21:23 | PN ---
INFECTIOUS DISEASE PROGRESS NOTE Date of Service: Apr 12, 2024 SUBJECTIVE: This is a 49-year-old female patient with past medical history of left kidney stones and urinary tract infection who was admitted to the hospital with right flank pain. A urine culture collected on admission came back positive for Klebsiella pneumoniae. Patient was seen and examined at bedside in room 308. Patient is awake, alert and oriented x3. Patient is afebrile and the WBC is 6.8. Patient is being discharged today. From Infectious Disease standpoint patient can be discharged to home on cephalexin. Prescription was written and given to nurse. PHYSICAL EXAM EYES: Anicteric. Pupils equal and reactive. HENT: No oral thrush seen, moist Oral mucosa NECK: Supple, no JVD or thyromegaly. LUNGS: Good air entry. No rales, no rhonchi. CARDIOVASCULAR: S1, S2 regular. No murmur heard. ABDOMEN: Soft, non tender, bowel sounds present, no organomegaly CENTRAL NERVOUS SYSTEM: Awake, alert, oriented x 3. No focal deficits. SKIN: No rashes, no swelling. LYMPHATICS: No peripheral lymphadenopathy MUSCULOSKELETAL: No joint swelling, erythema or tenderness. EXTREMITIES: No cyanosis or clubbing BACK: No deformity, no pressure ulcer. GENITOURINARY: No dysuria or hematuria Vital Sign (Last 12 Hours) 04/12/24 04/12/24 12:00 16:00 Temp 98.4 98.6 Pulse 74 71 Resp 18 18 B/P (MAP) 115/63 124/63 Pulse Ox 99 97 O2 Delivery Room Air Room Air FiO2 21 21 Intake & Output (last 24hrs) 04/11/24 04/11/24 04/12/24 15:00 23:00 07:00 Intake Total 880 ml Balance 880 ml LABS: Laboratory: Test 04/12/24 04:10 Range/Units White Blood Count 6.8 4.8-10.8 K/uL Red Blood Count 3.72 L 4.00-5.50 MIL/uL Hemoglobin 10.7 L 12.0-16.0 g/dL Hematocrit 32.5 L 36-48 % Mean Corpuscular Volume 87.4 79-99 fL Mean Corpuscular Hemoglobin 28.8 27.0-33.0 pg Mean Corpuscular Hemoglobin Concent 32.9 32.0-36.0 g/dL Red Cell Distribution Width 13.5 11.0-15.5 % Platelet Count 169 130-400 K/uL Mean Platelet Volume 10.3 7.5-10.5 fL Immature Granulocyte % (Auto) 0.4 0-1 % Neutrophils (%) (Auto) 51.7 40.0-77.0 % Lymphocytes (%) (Auto) 33.0 21.0-51.0 % Monocytes (%) (Auto) 12.7 3.0-13.0 % Eosinophils (%) (Auto) 2.1 0.0-8.0 % Basophils (%) (Auto) 0.1 0.0-5.0 % Neutrophils # (Auto) 3.5 1.8-7.7 K/uL Lymphocytes # (Auto) 2.2 1.0-4.8 K/uL Monocytes # (Auto) 0.9 0.1-1.0 K/uL Eosinophils # (Auto) 0.14 0.00-0.70 K/uL Basophils # (Auto) 0.01 0.00-0.20 K/uL Absolute Immature Granulocyte (auto 0.03 0-1 K/uL Nucleated Red Blood Cells 0.0 0.0-0.19 % Sodium Level 143 136-145 mmol/L Potassium Level 3.7 3.5-5.1 mmol/L Chloride Level 109 101-111 mmol/L Carbon Dioxide Level 25 21-32 mmol/L Blood Urea Nitrogen 15 7-18 mg/dL Creatinine 0.3 L 0.5-1.0 mg/dL Glomerular Filtration Rate Calc 132 >90 mL/min Random Glucose 103 70-105 mg/dL Total Calcium 8.9 8.5-10.1 mg/dL Magnesium Level 1.80 1.80-2.40 mg/dL Total Bilirubin 0.5 # 0.2-1.0 mg/dL Aspartate Amino Transf (AST/SGOT) 21 10-37 U/L Alanine Aminotransferase (ALT/SGPT) 35 12-78 U/L Alkaline Phosphatase 103 50-136 U/L Total Protein 6.4 6.0-8.3 g/dL Albumin 2.7 L 3.5-5.0 g/dL ASSESSMENT: Urinary Tract infection with Klebsiella pneumoniae. Failed outpatient antibiotic therapy. Leukocytosis, resolving. Nephrolithiasis. PLAN: Patient is being discharged to home today. From Infectious Disease standpoint patient can be discharged on cephalexin. Prescription was written and given to nurse. This case was reviewed and discussed with my supervising physician and the above assessment and plan was formulated and agreed upon. ATTESTATION BY PHYSICIAN I have seen and examined the patient. I reviewed the documentation, medical decision making, and treatment plan as noted by the mid-level provider above. I agree with the findings and plan of care. JONES MALLOY MD, MIRTA L [facility] Apr 12, 2024 21:23
== END 2024-04-12 17:57 | disposition home or self-care (01) | DRG 872 ==
LOC: EDH 10:55 → EDHIP 13:46 → 3BH 23:29
PROVIDERS: ADMIT Internal Medicine Sleep Medicine; ATTEND Internal Medicine Sleep Medicine
DX: A41.50 Gram-negative sepsis, unspecified (principal); N13.6 Pyonephrosis; E44.0 Moderate protein-calorie malnutrition; D64.9 Anemia, unspecified; I10 Essential (primary) hypertension; E66.9 Obesity, unspecified; E05.90 Thyrotoxicosis, unspecified without thyrotoxic crisis or storm; B96.1 Klebsiella pneumoniae [K. pneumoniae] as the cause of diseases classified elsewhere; Z82.5 Family history of asthma and other chronic lower respiratory diseases; Z83.3 Family history of diabetes mellitus; Z87.442 Personal history of urinary calculi; Z88.0 Allergy status to penicillin; Z82.3 Family history of stroke; Z82.49 Family history of ischemic heart disease and other diseases of the circulatory system; Z68.30 Body mass index [BMI] 30.0-30.9, adult; Z79.899 Other long term (current) drug therapy
CPT/HCPCS: 36415; 74176; 80048; 80053; 81001; 83605; 83735; 84145; 84703; 85025; 86140; 87040; 87086; 87186; 96361; 96374; 96375; 99285; G0378; J1885; J2185; J2270; J2405; J3475; J3490; J7030

== ENCOUNTER 2024-06-09 08:23 | Emergency (ER) | payer MEDICAID ==
[~2024-06-09] VITALS: Ht 157.5 cm; Wt 72.6 kg
[~2024-06-09 08:23] MED LIST changes: +DILT120C89 PO; +LACT1CAP79 PO; -LEVO250T75 PO; +NITR100C PO; +PROP10TA72 PO; +VANC125C19 PO; -[UNRECOGNIZED DRUG - CODE] PO
--- NOTE | 2024-06-09 08:45 | NUR ---
Note ericakristian in ED - 06/09/24 at 1019 by YULIYA PATIENT AND HER SON ASKED IF SHE CAN GO TO [facility].INFORMED THEM THAT THEY ARE FREE TO LEAVE IF THEY WISH.THEY STATED THEY NORMALLY GO TO [facility] AND THE OTHER SON, WHO BROUGHT THE PATIENT IN BROUGHT HER HERE BY ACCIDENT.PATIENT WAS HELPED INTO A WHEELCHAIR, SON WHEELED HER OUT TO [employer].
--- NOTE | 2024-06-09 08:57 | ERN ---
ED Note History of Present Illness Stated Complaint: BACK Chief Complaint: Back Pain-No Injury Time Seen by MD: 08:28 Dictation: Patient is a 49-year-old female with past medical history of recurrent UTIs came to the ER complaining of right side costovertebral angle pain, she states"" my kidneys hurts"". Allergies: Coded Allergies: piperacillin (Unverified Allergy, Intermediate, RASH, 03/11/24) tazobactam (Unverified Allergy, Intermediate, RASH, 03/11/24) Home Meds Active Scripts Nitrofurantoin Macrocrystal (Nitrofurantoin) 100 Mg Capsule, 1 CAP PO BID for 7 Days, #14 CAP 0 Refills Prov:CARLYLE POTTS MD 05/04/24 Vancomycin HCl (Vancomycin HCl) 125 Mg Capsule, 1 CAP PO QID for 3 Days, #12 CAP 0 Refills Prov:CARLYLE POTTS MD 05/04/24 Propranolol HCl (Inderal) 10 Mg Tab, 10 MG PO DAILY for 30 Days, #30 TAB 1 Refill Prov:CARLYLE POTTS MD 05/04/24 Methimazole (Methimazole) 10 Mg Tablet, 10 MG PO TID for 30 Days, #90 TAB 1 Refill Prov:CARLYLE POTTS MD 05/04/24 Lisinopril (Lisinopril) 40 Mg Tablet, 40 MG PO DAILY for 30 Days, #30 TAB 1 Refill Prov:CARLYLE POTTS MD 05/04/24 Lactobacillus Rhamnosus GG (Culturelle) 15 Billion Cell Cap.sprink, 1 EACH PO BID for 7 Days, #14 CAP.SPRINK 0 Refills Prov:CARLYLE POTTS MD 05/04/24 Diltiazem HCl (Cardizem Cd 120 mg) 120 Mg Cap.er.24h, 120 MG PO HS for 30 Days, #30 CAPSULE.DR 1 Refill Prov:CARLYLE POTTS MD 05/04/24 Apixaban (Eliquis) 5 Mg Tablet, 5 MG PO BID for 30 Days, #60 TAB 1 Refill Prov:CARLYLE POTTS MD 05/04/24 Past Medical History Past Medical History: Hyperthyroid, UTI Surgical History: Tonsillectomy, Cholecystectomy, Other, Surgical History Other: HIP History: Not Applicable Review of System Dictation NEGATIVE EXCEPT PER HPI Constitutional: Negative for fever,chills, and weight loss Eyes: Negative for injury, pain,redness, and discharge ENT: Negative for injury,pain or swelling Cardiovascular: denies chest pain, palpitations, and edema Respiratory: Negative for shortness of breath, cough, and wheezing, Abdomen/GI: Negative for abdominal pain, nausea, vomiting, diarrhea, and constipation Back: Negative for injury and pain, she reports right side CVA pain : Right-sided flank pain MS/Extremity: Negative for injury and deformity Skin: Negative for rash, and discoloration Neuro: Negative for headache, weakness, numbness, tingling, and seizure Psych: Negative for suicide ideation, homicidal ideation, and hallucinations Initial Vital Sign VS Vital Signs Date Time Temp Pulse Resp B/P (MAP) Pulse Ox O2 Delivery O2 Flow Rate FiO2 06/09/24 08:26 101.5 94 20 120/66 99 Room Air Physical Exam Dictation General: awake, alert, NAD Head/Face: Normocephalic, atraumatic Eyes: PERRL, EOMI, vision at baseline ENT: oral cavity clear, TMs clear, no signs of infection Neck: Trachea midline, supple, no nuchal rigidity Cardiovascular: RRR, normal S1/S2, No MRGs, no JVD Respiratory: CTAB, no respiratory distress, No rales or wheezes Abdomen: Soft , no tender. Right CVA pain/tenderness Skin: Warm, dry, normal turgor, no rash MS/Extremity: Pulses equal, no cyanosis, neurovascular intact, FROM Neuro: COAx4, GCS 15, strength 5/5, CN 2-12 intact, normal cerebellar exam, normal gait, Psych: Normal behavior, mood, and affect normal Results (Laboratory/Radiology) Laboratory/Radiology Laboratory Tests Test 06/09/24 08:34 Urine Color YELLOW (YELLOW) Urine Appearance CLOUDY (CLEAR) H Urine pH 5.5 (5.0-8.0) Urine Specific [employer] [place] 1.014 (1.001-1.031) Urine Protein NEGATIVE mg/dL (NEGATIVE) Urine Glucose (UA) NEGATIVE mg/dL (NEGATIVE) Urine Ketones NEGATIVE mg/dL (NEGATIVE) Urine Occult Blood +- (TRACE) (NEGATIVE) H Urine Nitrate NEGATIVE (NEGATIVE) Urine Bilirubin NEGATIVE mg/dL (NEGATIVE) Urine Urobilinogen 0.2 mg/dL (0.2-1.0) Urine Leukocyte Esterase 250 Fer/uL (NEGATIVE) H Urine RBC 2-5 /HPF (0-1) H Urine WBC 26-50 /HPF (0-1) H Urine Squamous Epithelial Cells RARE /HPF (0-2) Urine Bacteria FEW /HPF (None Seen) ED Course ED Course Orders Procedure Category Date Status Time Urinalysis Profile LAB 06/09/24 Complete 08:32 Ketorolac PHA 06/09/24 Complete Tromethamine 30mg/Ml 09:00 Culture Urine LEONARDA 06/09/24 In Process 09:02 Current Medications Medications (Trade) Dose Ordered Sig/Leah Route PRN Reason Start Time Stop Time Status Last Admin Dose Admin Ketorolac Tromethamine (toRADol) 30 mg ONCE ONCE IVP 06/09/24 09:00 06/09/24 09:01 DC Vital Signs Date Time Temp Pulse Resp B/P (MAP) Pulse Ox O2 Delivery O2 Flow Rate FiO2 06/09/24 08:26 101.5 94 20 120/66 99 Room Air Medical Decision Making MDM 49-year-old female with a history of recurrent UTIs. Came to the ER complaining of right CVA pain. UTI Pyelonephritis CBC, BMP, UA Pain medication for control DX & DISP Disposition: Other(Comment) Departure Impression: Primary Impression: Eloped from emergency department Condition: Stable Referrals: SELF,REFERRAL (PCP) As per nurse patient eloped prior having workup done. NADINE CHOU MD Jun 09, 2024 08:57
[2024-06-09 08:58] LABS: APPEARANCE,URINE CLOUDY (CLEAR); BILIRUBIN,URINE NEGATIVE (NEGATIVE); COLOR,URINE YELLOW (YELLOW); GLUCOSE, URINE (UA) NEGATIVE (NEGATIVE); KETONES,URINE NEGATIVE (NEGATIVE); LEUKOCYTE ESTERASE ,URINE 250 Leu/uL (NEGATIVE); NITRATE,URINE NEGATIVE (NEGATIVE); PH,URINE 5.5 (5.0-8.0); PROTEIN,URINE NEGATIVE (NEGATIVE); UROBILINOGEN,URINE 0.2 mg/dL (0.2-1.0)
[2024-06-09 09:02] LABS: ADD UA MICROSCOPIC YES
[2024-06-09 09:09] LABS: BACTERIA,URINE FEW /HPF (None Seen); MUCUS,URINE RARE LPF (None Seen); SQUAMOUS EPITHELIAL CELL,UR RARE /HPF (0-2); WBC,URINE 26-50 /HPF (0-1)
[2024-06-09 09:15] VITALS: BP 118/68; PULSE 92; RESP 18; TEMP 101; O2SAT 99
--- NOTE | 2024-06-09 09:45 | NUR ---
PATIENT AND HER SON ASKED IF SHE CAN GO TO [facility].INFORMED THEM THAT THEY ARE FREE TO LEAVE IF THEY WISH.THEY STATED THEY NORMALLY GO TO [facility] AND THE OTHER SON, WHO BROUGHT THE PATIENT IN BROUGHT HER HERE BY ACCIDENT.PATIENT WAS HELPED INTO A WHEELCHAIR, SON WHEELED HER OUT TO [place].
[2024-06-09] MEDS: ketOROlac 30MG VIAL (30MG/ML) IVP ONE (10:03)
== END 2024-06-09 09:45 | disposition left against medical advice (07) ==
LOC: EDH 08:23
DX: M54.50 Low back pain, unspecified (principal); E03.9 Hypothyroidism, unspecified; Z79.01 Long term (current) use of anticoagulants; Z79.899 Other long term (current) drug therapy; Z88.0 Allergy status to penicillin; Z90.49 Acquired absence of other specified parts of digestive tract; Z90.89 Acquired absence of other organs; Z53.21 Procedure and treatment not carried out due to patient leaving prior to being seen by health care provider
CPT/HCPCS: 81001; 87086; 87186

== ENCOUNTER 2024-11-14 18:06 | Emergency (ER) | payer SELFPAY ==
[~2024-11-14] VITALS: Ht 157.5 cm; Wt 79.4 kg
[~2024-11-14 18:06] MED LIST changes: +LISI40TA15 PO; -LISI40TA9 PO
[2024-11-14] MEDS: FAMOTIDINE 20MG VIAL IV ONE (18:34)
[2024-11-14 18:39] LABS: IMMATURE GRANULOCYTE ABSOLUTE 0.02 K/uL (0-1); NUCLEATED RED BLOOD CELLS 0.0 % (0.0-0.19); PLATELET COUNT (AUTO) 177 K/uL (130-400); RED BLOOD CELL COUNT(AUTO) 3.61 MIL/uL (4.00-5.50); RED CELL DISTRIBUTION WIDTH 15.1 % (11.0-15.5); WHITE BLOOD COUNT (AUTO) 5.5 K/uL (4.8-10.8)
[2024-11-14 18:46] LABS: CREATININE 0.3 mg/dL (0.5-1.0); GLOMERULAR FILTR. RATE CALC 132.0 mL/min (>90); GLUCOSE,RANDOM 96.0 mg/dL (70-105); SODIUM SERUM 143.0 mmol/L (136-145); UREA NITROGEN, BLOOD 15.0 mg/dL (7-18)
--- NOTE | 2024-11-14 19:20 | ERN ---
ED Note History of Present Illness Stated Complaint: BEE STINGS Chief Complaint: Allergic Reaction Time Seen by MD: 19:10 Dictation: This is a 49-year-old female who presented to the emergency room with complaints of shortness of breath after she was stung by bees. Apparently she was in the y[place] and right in front of her house she has a a Swarm of bees that bit her on the right ear, below the right ear hand and arms. She began experiencing palpitations and slight shortness of breath and she called her mother who apparently advised her to come to the emergency room. She gave a history of possible reaction to the bee stings when she was 9-year-old girl. No lip swelling, no tongue swelling, no stridor, no labored respirations. She is on methimazole and diltiazem. Temperature 98.8, heart rate 142 respiratory rate of 42 blood pressure 170/85 pulse oximetry 99% on room air Chronic medical problems include hypertension and hyperthyroidism and history of questionable AFib but details are unclear Allergies: Coded Allergies: piperacillin (Unverified Allergy, Intermediate, RASH, 03/11/24) tazobactam (Unverified Allergy, Intermediate, RASH, 03/11/24) Home Meds Active Scripts Nitrofurantoin Macrocrystal (Nitrofurantoin) 100 Mg Capsule, 1 CAP PO BID for 7 Days, #14 CAP 0 Refills Prov:CARLYLE POTTS MD 05/04/24 Vancomycin HCl (Vancomycin HCl) 125 Mg Capsule, 1 CAP PO QID for 3 Days, #12 CAP 0 Refills Prov:CARLYLE POTTS MD 05/04/24 Propranolol HCl (Inderal) 10 Mg Tab, 10 MG PO DAILY for 30 Days, #30 TAB 1 Refill Prov:CARLYLE POTTS MD 05/04/24 Methimazole (Methimazole) 10 Mg Tablet, 10 MG PO TID for 30 Days, #90 TAB 1 Re fill Prov:CARLYLE POTTS MD 05/04/24 Lisinopril (Lisinopril) 40 Mg Tablet, 40 MG PO DAILY for 30 Days, #30 TAB 1 Refill Prov:CARLYLE POTTS MD 05/04/24 Lactobacillus Rhamnosus GG (Culturelle) 15 Billion Cell Cap.sprink, 1 EACH PO BID for 7 Days, #14 CAP.SPRINK 0 Refills Prov:CARLYLE POTTS MD 05/04/24 Diltiazem HCl (Cardizem Cd 120 mg) 120 Mg Cap.er.24h, 120 MG PO HS for 30 Days, #30 CAPSULE.DR 1 Refill Prov:CARLYLE POTTS MD 05/04/24 Apixaban (Eliquis) 5 Mg Tablet, 5 MG PO BID for 30 Days, #60 TAB 1 Refill Prov:CARLYLE POTTS MD 05/04/24 Past Medical History Past Medical History: Hypertension, Hyperthyroid Surgical History: Tonsillectomy, Cholecystectomy, Surgical History Other: RIGHT HIP Family History: Negative Social History: Negative History: Not Applicable RN Note Reviewed/Agreed w/PFSH: Yes Review of System Dictation Constitutional: Negative for fever,chills, and weight loss Eyes: Negative for injury, pain,redness, and discharge ENT: Negative for injury,pain or swelling Cardiovascular: Negative for chest pain, palpitations, and edema Respiratory: Positive for my shortness of breath, denies cough, and wheezing, Abdomen/GI: Negative for abdominal pain, nausea, vomiting, diarrhea, and constipation Back: Negative for injury and pain : Negative for injury, bleeding and discharge MS/Extremity: Negative for injury and deformity Skin: Negative for rash, and discoloration positive for bee stings Neuro: Negative for headache, weakness, numbness, tingling, and seizure Psych: Negative for suicide ideation, homicidal ideation, and hallucinations Initial Vital Sign VS Vital Signs Date Time Temp Pulse Resp B/P (MAP) Pulse Ox O2 Delivery O2 Flow Rate FiO2 11/14/24 18:07 98.8 142 22 170/85 99 Room Air 0 11/14/24 18:28 21 Physical Exam Dictation Constitutional: Negative for fever,chills, and weight loss Eyes: Negative for injury, pain,redness, and discharge exophthalmos noted ENT: Negative for injury,pain or swelling no lip swelling no tongue swelling no stridor patient able to speak full sentences no labored respirations. Cardiovascular: Negative for chest pain, palpitations, and edema Respiratory: Negative for shortness of breath, cough, and wheezing, Abdomen/GI: Negative for abdominal pain, nausea, vomiting, diarrhea, and constipation Back: Negative for injury and pain : Negative for injury, bleeding and discharge MS/Extremity: Negative for injury and deformity Skin: Negative for rash, and discoloration insect bite vergara on her right ear, below the right ear and hand note Neuro: Negative for headache, weakness, numbness, tingling, and seizure Psych: Negative for suicide ideation, homicidal ideation, and hallucinations Results (Laboratory/Radiology) Laboratory/Radiology Laboratory Tests Test 11/14/24 18:29 White Blood Count 5.5 K/uL (4.8-10.8) Red Blood Count 3.61 MIL/uL (4.00-5.50) L Hemoglobin 10.3 g/dL (12.0-16.0) L Hematocrit 31.3 % (36-48) L Mean Corpuscular Volume 86.7 fL (79-99) Mean Corpuscular Hemoglobin 28.5 pg (27.0-33.0) Mean Corpuscular Hemoglobin Concent 32.9 g/dL (32.0-36.0) Red Cell Distribution Width 15.1 % (11.0-15.5) Platelet Count 177 K/uL (130-400) Mean Platelet Volume 10.4 fL (7.5-10.5) Immature Granulocyte % (Auto) 0.4 % (0-1) Neutrophils (%) (Auto) 32.5 % (40.0-77.0) L Lymphocytes (%) (Auto) 56.5 % (21.0-51.0) H Monocytes (%) (Auto) 9.1 % (3.0-13.0) Eosinophils (%) (Auto) 1.3 % (0.0-8.0) Basophils (%) (Auto) 0.2 % (0.0-5.0) Neutrophils # (Auto) 1.8 K/uL (1.8-7.7) Lymphocytes # (Auto) 3.1 K/uL (1.0-4.8) Monocytes # (Auto) 0.5 K/uL (0.1-1.0) Eosinophils # (Auto) 0.07 K/uL (0.00-0.70) Basophils # (Auto) 0.01 K/uL (0.00-0.20) Absolute Immature Granulocyte (auto 0.02 K/uL (0-1) Nucleated Red Blood Cells 0.0 % (0.0-0.19) Urine HCG, Qualitative NEGATIVE (NEGATIVE) Sodium Level 143 mmol/L (136-145) Potassium Level 3.7 mmol/L (3.5-5.1) Chloride Level 108 mmol/L (101-111) Carbon Dioxide Level 25 mmol/L (21-32) Blood Urea Nitrogen 15 mg/dL (7-18) Creatinine 0.3 mg/dL (0.5-1.0) L Glomerular Filtration Rate Calc 132 mL/min (>90) Random Glucose 96 mg/dL (70-105) Total Calcium 9.3 mg/dL (8.5-10.1) Troponin I High Sensitivity 14 ng/L (4-50) B-Type Natriuretic Peptide 677 pg/mL (0-100) H Labs Reviewed?: Yes X-RAY Comment: REASON: cp ORDERING PHYSICIAN: STEVEN LEONARD MD PROCEDURE: CXR1VW - CHEST 1VW EXAM: CR Chest, 1 View. CLINICAL HISTORY: cp COMPARISON: 04/29/2024 FINDINGS: LUNGS: The lungs show no infiltrate or other acute finding. PLEURAL SPACES: No evidence of pleural effusion or pneumothorax. MEDIASTINUM: Cardiac size and mediastinal contours within normal limits. BONES: No acute osseous abnormality. IMPRESSION: No acute cardiopulmonary pathology is evident. /Bell DICTATED BY: LAMONT HULL MD DATE: 11/14/242099 ELECTRONICALLY SIGNED BY: LAMONT HULL MD DATE: 11/14/242099 ED Course ED Course Orders Procedure Category Date Status Time Cbc With Differential LAB 11/14/24 Complete 18:11 Chest 1vw RAD 11/14/24 Resulted 18:11 12 Lead Ekg Tracing- EKG 11/14/24 Logged Technical 18:11 ,Urine Test LAB 11/14/24 Complete 18:11 Troponin I High LAB 11/14/24 Complete Sensitivity 18:11 Basic Metabolic Panel LAB 11/14/24 Complete 18:11 Methylprednisolone PHA 11/14/24 Complete Succ 125mg (Solu-Medr 18:30 Diphenhydramine Hcl PHA 11/14/24 Complete (Benadryl Inj) 18:30 Famotidine 20mg Vial PHA 11/14/24 Complete (Pepcid 20mg Vial) 18:30 B-Type Natriuretic LAB 11/14/24 Complete Peptide 18:22 Metoprolol Tartrate PHA 11/14/24 Complete (Lopressor) 19:30 Metoprolol Tartrate PHA 11/14/24 Complete (Lopressor) 19:08 0.9% Nacl 500ml PHA 11/14/24 Complete Iv.Soln (Ns 500ml 20:30 Metoprolol Tartrate PHA 11/14/24 Complete (Lopressor) 21:30 Current Medications Medications (Trade) Dose Ordered Sig/Leah Route PRN Reason Start Time Stop Time Status Last Admin Dose Admin Diphenhydramine HCl (BENAdryl INJ) 25 mg ONCE ONCE IV 11/14/24 18:30 11/14/24 18:31 DC 11/14/24 18:34 Famotidine (Pepcid 20mg Vial) 20 mg ONCE ONCE IV 11/14/24 18:30 11/14/24 18:31 DC 11/14/24 18:34 Methylprednisolone Sodium Succinate (Solu-medROL 125MG) 125 mg ONCE ONCE IVP 11/14/24 18:30 11/14/24 18:31 DC 11/14/24 18:34 Metoprolol Tartrate (loprESSOR) 5 mg ONCE ONCE IV 11/14/24 19:30 11/14/24 19:31 DC Metoprolol Tartrate (loprESSOR) 5 mg ONCE ONCE IV 11/14/24 21:30 11/14/24 21:31 DC 11/14/24 21:49 Metoprolol Tartrate (loprESSOR) 5 mg STK-MED ONCE IV 11/14/24 19:08 11/14/24 19:08 DC 11/14/24 19:10 Sodium Chloride 500 ml @ 0 mls/hr ONCE ONCE IV 11/14/24 20:30 11/14/24 20:31 DC 11/14/24 20:29 Vital Signs Date Time Temp Pulse Resp B/P (MAP) Pulse Ox O2 Delivery O2 Flow Rate FiO2 11/14/24 21:56 98.4 101 18 147/62 99 Room Air* 0 11/14/24 21:49 122 11/14/24 21:25 98.4 118 18 160/101 99 Room Air* 0 11/14/24 20:51 127 18 176/102 99 Room Air* 0 11/14/24 20:20 98.4 126 18 168/105 99 Room Air* 0 21 11/14/24 19:17 98.4 126 18 156/80 99 Room Air* 0 21 11/14/24 19:10 129 156/80 11/14/24 18:28 109 18 187/103 98 Room Air* 0 21 11/14/24 18:07 98.8 142 22 170/85 99 Room Air 0 7:00 p.m. patient was signed out to me by a.m. physician. Independent history full evaluation done We will perform diagnostic labs, advanced imaging and administer medications according to the patient's complaint. Once the results are available, will review and personally interpreted the labs to rule out any acute life- threatening emergency the trach require immediate intervention and treatment. I will then re-evaluate the patient after treatment and diagnostic exams have ret urn to determine whether the patient requires any further testing, can safely be discharged home or need further admission to hospital for additional treatment and evaluation. Labs reviewed--CBC hemoglobin 10.3 white count 5.5. BNP 7 is with a normal limits troponins 14 urine test is negative brain natriuretic peptide is 677 10:04 p.m. patient is alert awake oriented x3 and clinically is feeling significantly improved her heart rate is down to 101 and blood pressure finally is 147/62. She would like to be discharged to home I updated her on all the labs and my concerns and counseled her on diligent compliance and she verbalized understanding. Medical Decision Making MDM MDM: Differential diagnosis: Rationale: Tests considered and ordered secondary to shared decision making include: Previous outside records reviewed: Old ER visits. Risk of complication and/or morbidity or mortality of patient management: None Medications-Per medication reconciliation Need for hospitalization: Patient does not meet criteria for hospitalization. Need for emergency major/minor surgery: No There are no social concerns with this patient. Prescription drug management Prescriptions will include symptomatic care Patient's prior external medical records from other ER visits were reviewed by me as indicated. Prior testing and results from previous visits were reviewed. Prior tests were taken into account with medical decision making and resource utilization, independent historian/historians were used to obtain complete medical history. I independently interpreted the test that were performed, results were reviewed by me and considered findings on radiology if ordered. Medical management and examination interpretation discussions were had by me with other qualified healthcare professionals as indicated for the patient's care. DX & DISP Disposition: Discharge Departure Impression: Primary Impression: Bee sting allergy Additional Impressions: Accidental bee sting, Hyperthyroidism Condition: Stable Scripts Prednisone (Prednisone) 20 Mg Tablet 1 TAB PO AD for 6 Days, #14 TAB 0 Refills TAKE 1 TAB BY MOUTH THREE TIMES PER DAY X3 DAYS, THEN TAKE 1 TAB BY MOUTH TWICE A DAY X2 DAYS, THEN TAKE 1 TAB BY MOUTH ONCE A DAY X1 DAY. Prov: GUERO GRAY MD 11/14/24 Additional Instructions: Patient and the caregiver have been informed of all the diagnostic tests and the imaging conducted during the today's visit to the emergency room and has verbalized understanding of the results I have personally reviewed and interpreted all diagnostic exams performed here in the ER today as well as the vital signs documented by the nursing staff. The patient is now being dischar ged to home and should follow up with the primary care physician or the specialist as directed by the ER staff. Follow-up with primary care provider in 1 to 2 days. Take medications as directed here in the emergency room. Okay to continue home medications unless otherwise discussed during your visit in the emergency room today. Return to your nearest emergency room if symptoms worsen or if there is no improvement. Call 911 if you need immediate assistance. Take Tylenol or Motrin [id number] as needed and if no contraindications are present. Increase oral hydration. A wound culture or urine culture was ordered here in the emergency room department please follow-up with primary care provider and advise them to get repeat ports from our facility. If you had any José wrap/splints that were applied here, please do not remove them until you see your primary care or specialty. [id number] Benadryl and Pepcid. Referrals: CATHY ESQUEDA MD (PCP) GUERO GRAY MD Nov 14, 2024 19:20
--- NOTE | 2024-11-14 20:02 | HMCIMG ---
EXAM: CR Chest, 1 View. CLINICAL HISTORY: cp COMPARISON: 04/29/2024 FINDINGS: LUNGS: The lungs show no infiltrate or other acute finding. PLEURAL SPACES: No evidence of pleural effusion or pneumothorax. MEDIASTINUM: Cardiac size and mediastinal contours within normal limits. BONES: No acute osseous abnormality. IMPRESSION: No acute cardiopulmonary pathology is evident. /Calvin
[2024-11-14] MEDS: 0.9% NACL 500ML IV.SOLN 500 ML IV ONE (20:29)
--- NOTE | 2024-11-14 21:08 | NUR ---
PT TOOK HER HOME DILTIAZEM AT DR. GRAY'S REQUEST. Addendum: 11/14/24 at 2128 by [email or web address] PT TOOK 60 MG OF DILTIAZEM PO FROM HOME MEDS
[2024-11-14] MEDS ORDERED: PRED20TA3 PO (21:59)
[2024-11-14 22:15] VITALS: BP 150/70; PULSE 95; RESP 18; TEMP 98.4; O2SAT 100
--- NOTE | 2024-11-15 06:31 | EKG ---
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
== END 2024-11-14 22:16 | disposition home or self-care (01) ==
LOC: EDH 18:06
DX: T63.441A Toxic effect of venom of bees, accidental (unintentional), initial encounter (principal); E05.90 Thyrotoxicosis, unspecified without thyrotoxic crisis or storm; I10 Essential (primary) hypertension; I48.91 Unspecified atrial fibrillation; Z79.01 Long term (current) use of anticoagulants; Z79.899 Other long term (current) drug therapy; Z88.0 Allergy status to penicillin; Z90.49 Acquired absence of other specified parts of digestive tract; Z90.89 Acquired absence of other organs; Y92.89 Other specified places as the place of occurrence of the external cause
CPT/HCPCS: 99285; 96374; 96375; 71045; 84484; 80048; 83880; 85025; 81025; 36415; 96376; 93005; J2919; J7040; J1200; J3490 ×3

== ENCOUNTER → 2025-01-06 | Emergency (ER) | payer MEDICAID ==
[~2025-01-06] VITALS: Ht 157.5 cm; Wt 78.0 kg
[~2025-01-06] MED LIST changes: +PRED20TA3 PO
[2025-01-06 12:20] VITALS: BP 142/66; PULSE 79; RESP 16; TEMP 98.2
--- NOTE | 2025-01-06 12:33 | ERN ---
ED Note History of Present Illness Stated Complaint: HEADACHE, ELEVATED BP Chief Complaint: Headache Time Seen by MD: 12:21 Dictation: PATIENT IS A 49-YEAR-OLD FEMALE COMING IN TODAY FROM HOME WITH COMPLAINTS OF AN OCCIPITAL HEADACHE AND ELEVATED BLOOD PRESSURE AT HOME. SHE STATES SHE HAS A HISTORY OF MIGRAINE HEADACHES AND TOOK SOME EXCEDRIN AT 06:00 THIS MORNING. SHE STATES SHE CHECKED HER BLOOD PRESSURE AND WAS 175 SYSTOLIC HOWEVER SHE DOES NOT HAVE A HISTORY OF HIGH BLOOD PRESSURE. NEUROLOGICALLY INTACT SPEECH IS CLEAR. CURRENT BLOOD PRESSURE 142/66 AND PATIENT IS WAS TOLD THAT SHE IS NOT HYPERTENSIVE AT THIS TIME. OTHER THAN BENIGN. Allergies: Coded Allergies: piperacillin (Unverified Allergy, Intermediate, RASH, 03/11/24) tazobactam (Unverified Allergy, Intermediate, RASH, 03/11/24) Home Meds Active Scripts Prednisone (Prednisone) 20 Mg Tablet, 1 TAB PO AD for 6 Days, #14 TAB 0 Refills TAKE 1 TAB BY MOUTH THREE TIMES PER DAY X3 DAYS, THEN TAKE 1 TAB BY MOUTH TWICE A DAY X2 DAYS, THEN TAKE 1 TAB BY MOUTH ONCE A DAY X1 DAY. Prov:GUERO GRAY MD 11/14/24 Nitrofurantoin Macrocrystal (Nitrofurantoin) 100 Mg Capsule, 1 CAP PO BID for 7 Days, #14 CAP 0 Refills Prov:CARLYLE POTTS MD 05/04/24 Vancomycin HCl (Vancomycin HCl) 125 Mg Capsule, 1 CAP PO QID for 3 Days, #12 CAP 0 Refills Prov:CARLYLE POTTS MD 05/04/24 Propranolol HCl (Inderal) 10 Mg Tab, 10 MG PO DAILY for 30 Days, #30 TAB 1 Ref ill Prov:CARLYLE POTTS MD 05/04/24 Methimazole (Methimazole) 10 Mg Tablet, 10 MG PO TID for 30 Days, #90 TAB 1 Refill Prov:CARLYLE POTTS MD 05/04/24 Lisinopril (Lisinopril) 40 Mg Tablet, 40 MG PO DAILY for 30 Days, #30 TAB 1 Refill Prov:CARLYLE POTTS MD 05/04/24 Lactobacillus Rhamnosus GG (Culturelle) 15 Billion Cell Cap.sprink, 1 EACH PO BID for 7 Days, #14 CAP.SPRINK 0 Refills Prov:CARLYLE POTTS MD 05/04/24 Diltiazem HCl (Cardizem Cd 120 mg) 120 Mg Cap.er.24h, 120 MG PO HS for 30 Days, #30 CAPSULE.DR 1 Refill Prov:CARLYLE POTTS MD 05/04/24 Apixaban (Eliquis) 5 Mg Tablet, 5 MG PO BID for 30 Days, #60 TAB 1 Refill Prov:CARLYLE POTTS MD 05/04/24 Past Medical History Past Medical History: Hypertension, Hyperthyroid, Migraines Surgical History: Tonsillectomy, Cholecystectomy, Surgical History Other: RIGHT HIP Family History: Negative Social History: Negative History: Not Applicable RN Note Reviewed/Agreed w/PFSH: Yes Review of System Dictation CONSTITUTIONAL: NEGATIVE EXCEPT FOR HPI HEAD/FACE: NEGATIVE EXCEPT FOR HPI EENT: NEGATIVE EXCEPT FOR HPI RESPIRATORY: NEGATIVE EXCEPT FOR HPI GASTROINTESTINAL/ABDOMINAL: NEGATIVE EXCEPT FOR HPI GENITOURINARY: NEGATIVE EXCEPT FOR HPI MUSCULOSKELETAL: NEGATIVE EXCEPT FOR HPI INTEGUMENTARY: NEGATIVE EXCEPT FOR HPI NEUROLOGICAL/PSYCH: NEGATIVE EXCEPT FOR HPI OCCIPITAL HEADACHE HEMATOLOGIC/LYMPHATIC: NEGATIVE EXCEPT FOR HPI ALL SYSTEMS NEGATIVE, EXCEPT NOTED ABOVE. 13 POINT REVIEW OF SYSTEMS ASSESSED AND ALL NEGATIVE EXCEPT FOR ABOVE. Initial Vital Sign VS Vital Signs Date Time Temp Pulse Resp B/P (MAP) Pulse Ox O2 Delivery O2 Flow Rate FiO2 01/06/25 12:20 98.2 79 16 142/66 98 Room Air 0 Physical Exam Dictation VITAL SIGNS REVIEWED GENERAL APPEARANCE: ALERT, ORIENTED X 3, MILD ACUTE DISTRESS, WELL DEVELOPED, NOURISHED. HEAD AND FACE: NON-TRAUMATIC. EYES: PERRL, PINK CONJUNCTIVAS, EYELID NO TRAUMA, ANTERIOR CHAMBER WITH ARCUS SENILIS. EARS: PINNAS INTACT AND NO SIGNS OF TRAUMA OR ERYTHEMA EAR CANALS CLEAR AND NO DISCHARGE TM NO ERYTHEMA NOSE: NO DISCHARGE, NO BLEEDING. OROPHARYNX: MOUTH NORMAL, TONGUE PINK, PHARYNX CLEAR,NO ERYTHEMA, TONSILS NO EXUDATES, NO ABSCESSES NOTED, MUCOUS MEMBRANE MOIST NECK: SUPPLE, NON-TENDER, NO THYROMEGALY, NO MASSES, NO JVD, NO BRUITS BREAST:DEFERRED CHEST:NO TENDERNESS, NO CREPITUS, NO PARADOXICAL MOVEMENT, NO RETRACTIONS LUNGS:CLEAR, WELL-VENTILATED, SYMMETRIC, NO RALES, NO WHEEZING, NO RHONCHI, NO STRIDOR, GOOD BREATH SOUNDS BILATERALLY HEART: REGULAR RATE, REGULAR RHYTHM, NO MURMUR, NO GALLOPS VASCULAR: NO PERIPHERAL EDEMA, ABDOMEN: SOFT, POSITIVE BOWEL SOUNDS, NONDISTENDED, NO GUARDING, NONTENDER, NO REBOUND, NO MASSES NO HEPATOMEGALY, NO SPLENOMEGALY, NO ROLDAN'S SIGN, NO HERNIAS. RECTAL: DEFERRED GENITAL: DEFERRED NEUROLOGICAL: NORMAL SPEECH, MOTOR FUNCTION INTACT, SENSORY FUNCTION INTACT NIH IS 0 MUSCULOSKELETAL: NECK NONTENDER, FULL RANGE OF MOTION, BACK NONTENDER, FULL RANGE OF MOTION, EXTREMITIES: NONTENDER, FULL RANGE OF MOTION SKIN: COLOR PINK, DRY, NO TURGOR, NO RASH, NO LACERATIONS, NO ABRASIONS, NO CONTUSIONS. LYMPHATIC: DEFERRED Results (Laboratory/Radiology) Labs Reviewed?: Yes ED Course ED Course Orders Procedure Category Date Status Time 12 Lead Ekg Tracing- EKG 01/06/25 Logged Technical 12:31 Acetaminophen 500mg PHA 01/06/25 Complete Tab (Tylenol 500mg T 13:00 Current Medications Medications (Trade) Dose Ordered Sig/Leah Route PRN Reason Start Time Stop Time Status Last Admin Dose Admin Acetaminophen (TYLenol 500MG TAB) 1,000 mg ONCE ONCE PO 01/06/25 13:00 01/06/25 13:01 DC Vital Signs Date Time Temp Pulse Resp B/P (MAP) Pulse Ox O2 Delivery O2 Flow Rate FiO2 01/06/25 12:20 98.2 79 16 142/66 98 Room Air 0 Medical Decision Making MDM PATIENT LEFT THE DEPARTMENT AGAINST MEDICAL ADVICE DX & DISP Disposition: AMA Departure Impression: Primary Impression: Tension headache Additional Impression: Benign hypertension Condition: Stable Referrals: CATHY ESQUEDA MD (PCP) Time of Disposition: 13:23 I have reviewed the case, and I agree with, Diagnosis and Plan TERRY PAULINO NP Jan 06, 2025 12:33
== END ==
LOC: EDH 12:18
DX: G44.209 Tension-type headache, unspecified, not intractable (principal); I10 Essential (primary) hypertension; G43.909 Migraine, unspecified, not intractable, without status migrainosus; Z79.01 Long term (current) use of anticoagulants; Z79.899 Other long term (current) drug therapy; Z88.0 Allergy status to penicillin; Z90.49 Acquired absence of other specified parts of digestive tract; Z90.89 Acquired absence of other organs
CPT/HCPCS: 99282